=== PATIENT | male | born 1960 | race Caucasian/White ===

== ENCOUNTER → 2019-04-02 15:44 | Outpatient (CLI) | payer OTHER, SELFPAY ==
--- NOTE | 2019-04-02 15:48 | CT_ITS ---
STUDY: CT ABDOMEN AND PELVIS WITH CONTRAST REASON FOR EXAM: Male, 59 years old. Abdominal pain and discomfort. History of Crohn''s disease. RADIATION DOSAGE (If Supplied By Facility): CTDIvol = ( 14.22 ) mGy, DLP = ( 895.82 ) mGycm TECHNIQUE: Transaxial images were obtained from the dome of the diaphragm to the symphysis pubis with oral contrast. Oral and amp; Readi-CAT and amp; IV 100mL Isovue-300 was administered. Sagittal and coronal images were reconstructed. Individualized dose optimization techniques were used for this CT. COMPARISON: None. FINDINGS: The visualized lung bases are unremarkable. The visualized portions of the heart are within normal limits. Normal liver. Normal gallbladder and extrahepatic biliary system. Normal spleen. Normal pancreas. Normal bilateral adrenal glands. Normal right kidney. Normal left kidney. Oral visualized ureters. Normal visualized stomach. Normal small intestine. Increased rectal feces. The colon is otherwise unremarkable. The appendix is visualized and appears normal. Minimal atherosclerotic changes of the distal aorta and iliac arteries without aneurysm or dissection. Normal inferior vena cava. Normal retroperitoneum. Normal urinary bladder. The prostate is mildly enlarged. Normal seminal vesicles. There is no pelvic lymphadenopathy. No free air or free fluid is seen within the peritoneal cavity. There are bilateral inguinal hernias of omental fat and fluid There are diffuse degenerative changes of the visualized lumbar spine. CT/Abdomen/Pelvis WITH Contrast IMPRESSION: 1. No evidence of acute intra-abdominal or pelvic process. 2. Mildly enlarged prostate. 3. Bilateral inguinal hernias. 4. Degenerative changes of the lumbar spine. Electronically Signed: Darrin Mancera DO at 16:36 EST Tel [phone], Service support ,
== END ==
PROVIDERS: Family Provider Family Medicine; PCP Family Medicine; Referring Provider Family Medicine; Visit Provider Family Medicine
DX: K50.018 Crohn's disease of small intestine with other complication (principal); R10.84 Generalized abdominal pain
CPT/HCPCS: 74177; Q9967

== ENCOUNTER 2019-04-16 10:59 | Day surgery (SDC) | payer OTHER, SELFPAY ==
[2019-04-10 15:10] VITALS: BMI 28.1
--- NOTE | 2019-04-12 12:38 | HP_ITS ---
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 Is patient in pain?: Yes Allergies No Known Allergies Allergy (Verified 04/12/19 08:30) [facility] Medical History (Updated 04/10/19 @ 15:08 by Shayla Crum) Bilateral inguinal hernia (Acute) Crohn's disease (Acute) Surgical History (Updated 04/10/19 @ 15:08 by Shayla Crum) History of ankle surgery (Acute) History of colonoscopy (Acute) History of hand surgery (Acute) Family History (Updated 04/10/19 @ 15:09 by Shayla Crum) Mother Colon cancer Breast cancer Cancer BLADDER/LUNG Social History (Updated 04/12/19 @ 12:38 by El Lynch MD) Smoking Status: Never smoker HPI HPI HPI: CHAY DAI, is a 59 M who presents to the office today for HPI HPI Surgical H&P: Yes HPI: CHAY DAI, is a 59 M who presents to the office today for Bilateral groin pain and need for colonoscopy. The patient has been experiencing bilateral groin pain and he had a CT scan which showed bilateral inguinal hernias. He says that the pain has been there steadily. He also requires Surveillance colonoscopy for his Crohn's disease. His last Colonoscopy was over 5 years ago. ROS General General: No weight change, appetite, fatigue, colon cancer, breast cancer or weakness HEENT HEENT: No difficulty swallowing, eye injury, eye surgery, swollen glands or hoarseness Endo Endocrine: No thyroid disease, diabetes mellitus, thyroid cancer, Hair loss, heat intolerance or cold intolerance Cardio Cardiovascular: No murmur, pacemaker, heart disease, atrial fibrillation, high blood pressure, heart attack, heart stent, palpitations, shortness of breat with exertion or chest pain Psych Psychiatric: No depression, anxiety or hearing voices Resp Respiratory: No shortness of breath, No sleep apnea, No cough, No COPD, No asthma, No emphysema, No wheezing Gastro Gastrointestinal: Yes abdominal pain, No nausea or vomiting, Yes diarrhea, No constipation, No blood in stool, No acid reflux, No hemorrhoids, No ulcers, No gallbladder problem, No black,tarry stools Radu Hematologic: No blood thinners, No blood disorders, No bleeding, No anemia, No blood clots Neuro Neurologic: No weakness Exam Const General: cooperative Orientation: alert, oriented x3 HENMT Head: normal to inspection Ears: hearing grossly normal bilaterally Eyes General: appearance normal, both eyes and all related structures Visual Almonte: normal visual almonte by confrontation Neck Neck: normal visual inspection Chest Chest palpation & inspection: normal inspection of the chest Resp Effort & Inspection: normal respiratory effort Auscultation: clear to auscultation bilaterally Cardio Rate: regular rate Rhythm: regular rhythm Heart Sounds: no murmurs GI Inspection: non-distended Palpation: soft, nontender Other: The patient has bilateral groin pain. Musc Cervical Spine: normal cervical lordosis, cervical ROM normal Skin General: no rashes or lesions noted Neuro General: alert, oriented x3 Cranial Nerves: CN's II-XI intact bilaterally Cognition: normal cognition Extrem General: normal to inspection, full ROM Psych Appearance: grossly normal Affect: normal affect Assessment & Plan Problems 1. Non-recurrent bilateral inguinal hernia without obstruction or gangrene K40.20 2. Crohn's disease with complication, unspecified gastrointestinal tract location K50.919 Plan Patient reports he is having bilateral groin pain. I was unable to appreciate a reducible hernia on either side but he was exquisitely tender. CT scan did reveal fat in the bilateral inguinal canals. This may be bilateral inguinal cord lipomas. I explained to him that I did not know if repairing his hernias would fix his pain but I did offer him robotic assisted laparoscopic inguinal hernia repair on both sides. I explained that it may be as simple as removing the cord lipomas or this may not resolve his pain at all. I discussed the risks including but not limited to bleeding, infection, injury to bowel, injury to spermatic cord, chronic groin pain. The patient understands and wants to proceed. I also offered the patient colonoscopy for surveillance for his Crohn's disease. I explained endoscopy in detail to the patient. I explained the risks including but not limited to stroke or heart attack with anesthesia, perforation of the GI tract, bleeding, infection. I explained that any of these could necessitate further emergency surgery. The patient understands and all questions were answered sufficiently. The patient wishes to proceed with procedure. El Lynch MD Pager: [facility] [address] [place] [address], [address] [place] [phone] Office: Orders Orders: Colonoscopy 04/10/19 K50.90 Medications New: hydrocodone-acetaminophen 5-325 mg ([place]) 1 tab PO Q6H PRN 20 tabs 0RF pain K40.20 Coding Level of Care Code Off vis,new,level 4 Diagnoses Non-recurrent bilateral inguinal hernia without obstruction or gangrene K40.20 ??Obstruction and gangrene presence: without obstruction or gangrene ??Recurrence: non-recurrent Crohn's disease with complication, unspecified gastrointestinal tract location K50.919 ??Gastrointestinal tract location: unspecified location ??Digestive disease complication type: unspecified complication Time Spent (min) 45 04/12/19 1238 <Electronically signed by El herrera MD> Date _ El Lynch MD I have re-examined the patient. There are no clinical changes since date of exam.
--- NOTE | 2019-04-12 14:31 | EKG12_ITS ---
Test Reason : PRE-OP Blood Pressure : / mmHG Vent. Rate : 093 BPM Atrial Rate : 093 BPM P-R Int : 184 ms QRS Dur : 094 ms QT Int : 374 ms P-R-T Axes : 066 -62 075 degrees QTc Int : 465 ms Normal sinus rhythm Possible Left atrial enlargement Left anterior fascicular block Cannot rule out Inferior infarct , age undetermined Abnormal ECG Confirmed by FAM AN, SYDNIE ([id number]), news videotape editor ISABEL DEWEY ([id number]) on 04/13/2019 10:06:22 AM Referred By: El Lynch Confirmed By:AMARIS OTTO MD
[2019-04-16] VITALS (7 sets, daily range): BP systolic 102–122; BP diastolic 72–87; PULSE 89–94; RESP 16–18; TEMP 36.1–37.1; O2SAT 96–100; BMI 28.3
--- NOTE | 2019-04-16 | LIP_PTH ---
PATIENT: CHAY DAI LOC: [facility] [place] U#:[id number] AGE/SX: 59/M ROOM: RE04/16/[address]: Dr. El Lynch MD : 1960 BED: DIS: 04/16/2019 SPEC #: [id number] RECD: 04/16/19 16:07 STATUS: MORALES RANDAL #: [id number] PARISH: 04/16/19 00:[address]: El Lynch DEPT: SURGICAL PATHOLOGY RECD BY: Reno Delgado ENTERED: 04/17/19 08:52 SP TYPE: LIPOMA OTHR DR: MD Dr. Jonnie Mondragon MD Tissues: A - Soft tissues, NOS B - Soft tissues, NOS Procedures: Surgery Specimen Level III HEADER OPERATION: Lap robotic inguinal hernia PRE-OP DIAGNOSIS: Nonrecurrent bilateral inguinal hernia TISSUE SUBMITTED: A - Right cord lipoma, B - Left inguinal lipoma MICROSCOPIC DIAGNOSIS A. Right cord lipoma: Mature adipose tissue, consistent with lipoma. B. Left inguinal lipoma: Mature adipose tissue, consistent with lipoma. PAUL:kalin 04/18/19 MICROSCOPIC DESCRIPTION Slides are reviewed. GROSS DESCRIPTION A - Received in fixative is one container labeled with the patient's name and designated cord lipoma. The specimen consists of five variable sized pieces of yellow adipose tissue measuring in aggregate 3 x 2.5 x 0.3 cm. The entire specimen is submitted in one cassette. B - Received in fixative is one container labeled with the patient's name and designated left inguinal lipoma. The specimen consists of an irregular piece of yellow adipose tissue measuring 3 x 2.5 x 0.3 cm. Also present in the container are two smaller pieces of yellow adipose tissue measuring 1 x 0.2 x 0.2 cm. The entire specimen is submitted in one cassette. / PAUL:kalin 04/17/19 TC:1 CPT: 21137 x2
[2019-04-16] MEDS: Lactated Ringers 1,000 ML 100 ML IV ×2 (11:30)
[2019-04-16] MEDS: Cefazolin 2 GM in 0.9% Normal Saline 100 ML IV (12:06)
[2019-04-16] MEDS: Bupivacaine Mpf 0.5% 30 ML VIAL (14:08)
--- NOTE | 2019-04-16 14:52 | DCINST_ITS ---
Discharge Diet: Light diet - advance as tolerated Discharge Activity: Return to Normal Activity, May Not Drive - for 2-3 days or while taking narcotic pain meds., May Shower - with the bandage in place 1-2 days after surgery. Lifting Restrictions: 20 pounds for 4 weeks. Additional Activity Instructions:: Climbing stairs is fine, walking is encouraged. Sitting in bed may be uncomfortable. Sitting up using your lateral muscles (sitting up sideways) is usually more comfortable. Do not drive, work heavy equipment of sign legal documents for 24 hours. If your hernia repair was an ingunial repair, you may have scrotal swelling, an ice pack and/or athletic support can provide more comfort. Pain medications may cause nausea, you should typically eat light foods as you take your pain medications. Pain medications may also cause constipation. If you have difficulty with this, discuss with your doctor. Call your doctor if your incision/area has: Continuous Slow Oozing, Sudden Increased Bleeding, Increased Pain/ Swelling, Increased Redness, Foul Smelling Discharge Call your doctor if you observe: Fever of 101 or Higher Suture Line Care: Avoid Pulling/Pushing, Avoid Pinching/Bending Change Dressing in (Days):: 3 - Leave steri-strips for 1 week. May protect with a guaze bandaid. Cleanse incision/area with: Keep Dressing Clean & Dry Allergies/Adverse Reactions: Allergies No Known Allergies Allergy (Verified 04/12/19 08:30) Medications to take at Discharge hydrocodone 5 mg-acetaminophen 325 mg tablet 1 tab PO Q6H PRN #20 tab 04/10/19 RX: traMADol [Ultram] 50 mg PO Q4H PRN PRN 5 Days #20 tablet 04/16/19 The following prescriptions were given: RX: traMADol [Ultram] 50 mg PO Q4H PRN PRN 5 Days #20 tablet PRN Reason: Pain Score 1-10/10 Transmission Status: Sent to [facility] Orders to be completed after discharge: 12 Lead EKG [CVS] Time Frame: 04/12/19, Facility: [facility], Location: Cardiovascular Services Primary Care Physician: Jonnie Machado MD [Primary Care Provider] - Test Results: Test results from this visit will be discussed in further detail at your follow- up appointment, if applicable. Please Follow Up With: El Lynch MD When: Please call to schedule 2 week follow up appointment. [phone]
--- NOTE | 2019-04-16 15:09 | PCM.OPRPT ---
Problem List (1) Bilateral inguinal hernia Status: Acute Qualifiers: Obstruction and gangrene presence: without obstruction or gangrene Recurrence: non-recurrent Qualified Code(s): K40.20 - Bilateral inguinal hernia, without obstruction or gangrene, not specified as recurrent Report of Operation Date of Procedure: 04/16/19 Pre-Operative Diagnosis: Bilateral inguinal hernias Post-Operative Diagnosis: Same Surgery/Procedure Performed:: Robotic assisted laparoscopic bilateral inguinal hernia repair with mesh Specimen's removed: Right and left cord lipoma Description of Procedure: Patient was brought back to the operating room and general anesthesia was induced. The abdomen was prepped and draped in the usual sterile fashion. An incision was made superior to the umbilicus and a Veress needle was placed into the abdomen and a drop test was performed. The abdomen was then insufflated to 15 mmHg. The Veress needle was removed and the camera port was placed into the abdomen. The abdomen was inspected. The patient appeared to have bilateral very small inguinal hernias. He also had abnormal anatomy. He only possesses a right medial umbilical ligament. There is no fold on the left. Next, right and left lower quadrant 8 mm ports were placed under direct visualization. The robot was then docked after the patient was placed into steep Trendelenburg position. The right peritoneum was incised with cautery scissors and dissection of the peritoneum was taken inferiorly until the hernia was identified. The hernia sac would not reduced easily. It appeared to be stuck to something firm on the patient spermatic cord. I was forced to leave the peritoneum on the spermatic cord and incised the peritoneum accordingly. The dissection was carried more posterior until there was a good window for the mesh. The inguinal canal was inspected and there was a lipoma which was reduced and removed. Next a piece of pro-watermelon harvesting supervisor mesh was unfolded and placed over the right groin and the peritoneum was reapproximated using a running 3-0V lock suture. The defect in the peritoneum was then closed using another running 3-0V lock suture. Next the peritoneum on the left side was incised and dissected inferiorly until the spermatic cord was reached. Once again the peritoneum was densely adherent to the spermatic cord and was unable to be fully dissected free. It came free a lot easier than the other side and I was able to keep to a very small defect in the peritoneum after the dissection was complete. The inguinal canal was inspected and there was a large lipoma on the side as well which was reduced and removed. Next a piece of pro-watermelon harvesting supervisor mesh was placed in the left inguinal region and unfolded. The peritoneum was reapproximated with a running 30V lock suture. There was only a small defect in the peritoneum closed with a 3-0 Vicryl suture. At the end of the case both inguinal regions were completely covered with peritoneum. The ports were then removed and the robot was undocked. The incisions were anesthetized with local anesthetic and closed with interrupted 4-0 Monocryl sutures and Steri-Strips and bandages. Patient tolerated the procedure well. At the end of the case the scrotum was inspected. The testicles were high riding but they were present in the scrotum. Grafts/Implants Used: Pro-watermelon harvesting supervisor mesh bilaterally - Admit VTE Documentation VTE Mechan Device Prophylaxis: SCD's
[2019-04-16] MEDS: traMADol 50 MG Tablet PO (15:36)
== END 2019-04-16 16:13 | disposition home or self-care (01) ==
LOC: SDC 10:59 → AC 11:04
PROVIDERS: Family Provider Family Medicine; PCP Family Medicine; Referring Provider Surgery; Visit Provider Surgery
PROC: (CPT 49650; principal; 2019-04-16 12:40)
DX: K40.20 Bilateral inguinal hernia, without obstruction or gangrene, not specified as recurrent (principal); D17.6 Benign lipomatous neoplasm of spermatic cord; K50.919 Crohn's disease, unspecified, with unspecified complications
CPT/HCPCS: 49650; 55559; 88304; 93005; J7120; J2405

== ENCOUNTER 2019-06-05 07:09 | Day surgery (SDC) | payer OTHER, SELFPAY ==
[2019-04-10 15:10] VITALS: BMI 28.1
--- NOTE | 2019-04-12 12:38 | HP_ITS ---
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 Is patient in pain?: Yes Allergies No Known Allergies Allergy (Verified 04/12/19 08:30) [facility] Medical History (Updated 04/10/19 @ 15:08 by Shayla Crum) Bilateral inguinal hernia (Acute) Crohn's disease (Acute) Surgical History (Updated 04/10/19 @ 15:08 by Shayla Crum) History of ankle surgery (Acute) History of colonoscopy (Acute) History of hand surgery (Acute) Family History (Updated 04/10/19 @ 15:09 by Shayla Crum) Mother Colon cancer Breast cancer Cancer BLADDER/LUNG Social History (Updated 04/12/19 @ 12:38 by El Lynch MD) Smoking Status: Never smoker HPI HPI HPI: CHAY DAI, is a 59 M who presents to the office today for HPI HPI Surgical H&P: Yes HPI: CHAY DAI, is a 59 M who presents to the office today for Bilateral groin pain and need for colonoscopy. The patient has been experiencing bilateral groin pain and he had a CT scan which showed bilateral inguinal hernias. He says that the pain has been there steadily. He also requires Surveillance colonoscopy for his Crohn's disease. His last Colonoscopy was over 5 years ago. ROS General General: No weight change, appetite, fatigue, colon cancer, breast cancer or weakness HEENT HEENT: No difficulty swallowing, eye injury, eye surgery, swollen glands or hoarseness Endo Endocrine: No thyroid disease, diabetes mellitus, thyroid cancer, Hair loss, heat intolerance or cold intolerance Cardio Cardiovascular: No murmur, pacemaker, heart disease, atrial fibrillation, high blood pressure, heart attack, heart stent, palpitations, shortness of breat with exertion or chest pain Psych Psychiatric: No depression, anxiety or hearing voices Resp Respiratory: No shortness of breath, No sleep apnea, No cough, No COPD, No asthma, No emphysema, No wheezing Gastro Gastrointestinal: Yes abdominal pain, No nausea or vomiting, Yes diarrhea, No constipation, No blood in stool, No acid reflux, No hemorrhoids, No ulcers, No gallbladder problem, No black,tarry stools Radu Hematologic: No blood thinners, No blood disorders, No bleeding, No anemia, No blood clots Neuro Neurologic: No weakness Exam Const General: cooperative Orientation: alert, oriented x3 HENMT Head: normal to inspection Ears: hearing grossly normal bilaterally Eyes General: appearance normal, both eyes and all related structures Visual Almonte: normal visual almonte by confrontation Neck Neck: normal visual inspection Chest Chest palpation & inspection: normal inspection of the chest Resp Effort & Inspection: normal respiratory effort Auscultation: clear to auscultation bilaterally Cardio Rate: regular rate Rhythm: regular rhythm Heart Sounds: no murmurs GI Inspection: non-distended Palpation: soft, nontender Other: The patient has bilateral groin pain. Musc Cervical Spine: normal cervical lordosis, cervical ROM normal Skin General: no rashes or lesions noted Neuro General: alert, oriented x3 Cranial Nerves: CN's II-XI intact bilaterally Cognition: normal cognition Extrem General: normal to inspection, full ROM Psych Appearance: grossly normal Affect: normal affect Assessment & Plan Problems 1. Non-recurrent bilateral inguinal hernia without obstruction or gangrene K40.20 2. Crohn's disease with complication, unspecified gastrointestinal tract location K50.919 Plan Patient reports he is having bilateral groin pain. I was unable to appreciate a reducible hernia on either side but he was exquisitely tender. CT scan did reveal fat in the bilateral inguinal canals. This may be bilateral inguinal cord lipomas. I explained to him that I did not know if repairing his hernias would fix his pain but I did offer him robotic assisted laparoscopic inguinal hernia repair on both sides. I explained that it may be as simple as removing the cord lipomas or this may not resolve his pain at all. I discussed the risks including but not limited to bleeding, infection, injury to bowel, injury to spermatic cord, chronic groin pain. The patient understands and wants to proceed. I also offered the patient colonoscopy for surveillance for his Crohn's disease. I explained endoscopy in detail to the patient. I explained the risks including but not limited to stroke or heart attack with anesthesia, perforation of the GI tract, bleeding, infection. I explained that any of these could necessitate further emergency surgery. The patient understands and all questions were answered sufficiently. The patient wishes to proceed with procedure. El Lynch MD Pager: [facility] [address] [place] [address], [address] [place] [phone] Office: Orders Orders: Colonoscopy 04/10/19 K50.90 Medications New: hydrocodone-acetaminophen 5-325 mg ([place]) 1 tab PO Q6H PRN 20 tabs 0RF pain K40.20 Coding Level of Care Code Off vis,new,level 4 Diagnoses Non-recurrent bilateral inguinal hernia without obstruction or gangrene K40.20 ??Obstruction and gangrene presence: without obstruction or gangrene ??Recurrence: non-recurrent Crohn's disease with complication, unspecified gastrointestinal tract location K50.919 ??Gastrointestinal tract location: unspecified location ??Digestive disease complication type: unspecified complication Time Spent (min) 45 04/12/19 1238 <Electronically signed by El herrera MD> Date _ El Lynch MD I have re-examined the patient. There are no clinical changes since date of exam.
[2019-04-16 11:13] VITALS: BMI 28.3
--- NOTE | 2019-06-05 | COLBX_PTH ---
PATIENT: CHAY DAI LOC: [facility] U#:[id number] AGE/SX: 59/M ROOM: RE06/05/[address]: Dr. El Lynch MD : 1960 BED: DIS: 06/05/2019 SPEC #: [id number] RECD: 06/05/19 10:31 STATUS: MORALES RANDAL #: [id number] PARISH: 06/05/19 00:[address]: El Lynch DEPT: SURGICAL PATHOLOGY RECD BY: Reno Delgado ENTERED: 06/05/19 10:31 SP TYPE: COLON BX OTHR DR: Dr. Jonnie Machado MD Tissues: A - Transverse colon B - Descending colon C - Sigmoid colon biopsy Procedures: Surgery Specimen Level IV HEADER OPERATION: Colonoscopy (MAC) PRE-OP DIAGNOSIS: Crohn's TISSUE SUBMITTED: A - Transverse colon polyp, B - Descending colon polyp, C - Sigmoid colon polyp MICROSCOPIC DIAGNOSIS A. Transverse colon polyp, biopsy: Fragments of tubular adenoma. B. Descending colon polyp, biopsy: Fragments of tubular adenoma. C. Sigmoid colon polyp, biopsy: Tubular adenoma. PAUL:kalin 06/06/19 MICROSCOPIC DESCRIPTION Slides are reviewed. GROSS DESCRIPTION A - Received in fixative is one container labeled with the patient's name and designated transverse colon. The specimen consists of two irregular fragments of light campbell soft tissue that in aggregate measure 0.6 x 0.5 x 0.1 cm. The specimen is totally submitted in one cassette. B - Received in fixative is one container labeled with the patient's name and designated descending polyp. The specimen consists of two irregular fragments of light campbell soft tissue that in aggregate measure 0.7 x 0.7 x 0.2 cm. The specimen is totally submitted in one cassette. C - Received in fixative is one container labeled with the patient's name and designated sigmoid polyp. The specimen consists of one irregular fragment of light campbell soft tissue that measures 0.6 x 0.3 x 0.2 cm. The specimen is totally submitted in one cassette. / AM:kalin 06/05/19 TC:1 CPT: 77762 x3
[2019-06-05 07:23] VITALS: BP 126/86; PULSE 103; RESP 16; TEMP 36.4; O2SAT 98; BMI 27.6
[2019-06-05] MEDS: Lactated Ringers 1,000 ML 100 ML IV (07:28)
--- NOTE | 2019-06-05 07:28 | HP.PCM_ITS ---
Problem List (1) Crohn's disease Status: Acute History of Present Illness Date of Admission: 06/05/19 The patient is a 59 year old M presents for colonoscopy. He is here for surveillance for his Crohn's disease. Last colonoscopy was over 5 years ago. Past Medical History Medical History: Medical History (Last Updated 04/10/19 @ 15:08 by Shayla Crum) Bilateral inguinal hernia K40.20 Crohn's disease K50.90 Allergies No Known Allergies Allergy (Verified 06/05/19 07:23) Home Medications: Ambulatory Orders Medication Instructions Recorded NK 06/01/19 Surgical History: Surgical History (Last Updated 04/24/19 @ 15:05 by Shayla Crum) History of ankle surgery Z98.890 History of bilateral inguinal hernia repair Onset Date: ~03/2019 Z98.890, Z87.19 History of colonoscopy Z98.890 History of hand surgery Z98.890 Smoking Status: Never smoker Tobacco Use: Non-smoker Review of Systems Constitutional: Denies: Anorexia, Fever Cardiovascular: Denies: Chest Pain Respiratory: Denies: Cough, Shortness of Breath Gastrointestinal: Denies: Abdominal Pain, Nausea, Vomiting VTE Information - Inpt Only VTE Present on Admission: No Patient Problems: Active and Suspected Problems (Last Updated 04/10/19 @ 15:08 by Shayla Crum) Crohn's disease (Acute) - Physical Exam Vitals/I&O's: Vital Signs Temp Pulse Resp BP Pulse Ox 97.5 F L 103 H 16 126/86 H 98 06/05/19 07:23 06/05/19 07:23 06/05/19 07:23 06/05/19 07:23 06/05/19 07:23 Oxygen Delivery Method Room Air Weight: 181 lb 14.102 oz Body Mass Index (BMI) 27.6 General: Alert, Oriented x3 Neck: No JVD Lungs: Normal air movement Cardiovascular: Regular rate, Regular Rhythm Abdomen: Soft, Non Tender, Non-Distended Current Medications Lactated Ringer's () 1,000 mls @ 100 mls/hr IV .Q10H DEVIN Last Admin: 06/05/19 07:28 Dose: 100 mls/hr Documented by: Assessment/Plan All Active Problems (Last Updated 04/10/19 @ 15:08 by Shayla Crum) Crohn's disease (Acute) Bilateral inguinal hernia (Acute) 59-year-old male Crohn's disease Plan for surveillance colonoscopy. Patient's last colonoscopy was over 5 years ago. I explained endoscopy in detail to the patient. I explained the risks including but not limited to stroke or heart attack with anesthesia, perforation of the GI tract, bleeding, infection. I explained that any of these could necessitate further emergency surgery. The patient understands and all questions were answered sufficiently. The patient wishes to proceed with procedure. El Lynch MD Pager: [facility] [address] [place] [address] [address] [place] [address] Office:
[2019-06-05 08:16] VITALS: BP 111/83; BP 126/86; PULSE 93; RESP 16; TEMP 36.1; O2SAT 96
[2019-06-05 08:20] VITALS: BP 113/78; BP 126/86; PULSE 93; RESP 16; O2SAT 95
[2019-06-05 08:25] VITALS: BP 102/77; BP 126/86; PULSE 93; RESP 16; O2SAT 94
--- NOTE | 2019-06-05 08:29 | OP.COLON_ITS ---
Patient Name: Norberto Ho Procedure Date: 06/05/2019 7:32 AM Date of : 1960 Age: 59 Procedure: Colonoscopy Indications: High risk colon cancer surveillance: Crohn's disease Providers: El Lynch MD Referring MD: Jonnie Machado Md Medicines: Monitored Anesthesia Care Patient Profile: This is a 59 year old male. Refer to note in patient chart for documentation of history and physical. Last Colonoscopy: several years ago. Complications: No immediate complications. Estimated blood loss: Minimal. Procedure: Pre-Anesthesia Assessment: - Prior to the procedure, a History and Physical was performed, and patient medications and allergies were reviewed. The patient's tolerance of previous anesthesia was also reviewed. The risks and benefits of the procedure and the sedation options and risks were discussed with the patient. All questions were answered, and informed consent was obtained. Prior Anticoagulants: The patient has taken no previous anticoagulant or antiplatelet agents. After reviewing the risks and benefits, the patient was deemed in satisfactory condition to undergo the procedure. After I obtained informed consent, the scope was passed under direct vision. Throughout the procedure, the patient's blood pressure, pulse, and oxygen saturations were monitored continuously. The colonoscope was introduced through the anus and advanced to the cecum, identified by appendiceal orifice and ileocecal valve. The colonoscopy was performed without difficulty. The patient tolerated the procedure well. The quality of the bowel preparation was good. Scope In: 7:55:42 AM Scope Withdrawal Time 0 hours 13 minutes 13 seconds Scope Out: 8:12:47 AM Total Procedure Duration Time 0 hours 17 minutes 5 seconds Findings: Three polyps were found in the sigmoid colon, descending colon and transverse colon. These polyps were removed with a hot snare. Resection and retrieval were complete. Impression: - Three polyps in the sigmoid colon, in the descending colon and in the transverse colon, removed with a hot snare. Resected and retrieved. Recommendation: - Await pathology results. - Repeat colonoscopy in 5 years for surveillance. - Discharge patient to home. - Resume previous diet. - Continue present medications. Procedure Code(s): --- Professional --- 70518, Colonoscopy, flexible; with removal of tumor(s), polyp(s), or other lesion(s) by snare technique Diagnosis Code(s): --- Professional --- K50.90, Crohn's disease, unspecified, without complications D12.5, Benign neoplasm of sigmoid colon D12.4, Benign neoplasm of descending colon D12.3, Benign neoplasm of transverse colon (hepatic flexure or splenic flexure) CPT copyright 2017 [employer]. All rights reserved. The codes documented in this report are preliminary and upon information coder review may be revised to meet current compliance requirements. El Lynch MD 06/05/2019 8:29:02 AM This report has been signed electronically. Number of Addenda: 0 Note Initiated On: 06/05/2019 7:32 AM
--- NOTE | 2019-06-05 08:29 | OP.CCLET_ITS ---
06/05/2019 Jonnie Machado Md Re : Colonoscopy procedure for Norberto Ho Dear Carter This procedure was performed on Wednesday, June 05, 2019. My impressions and recommendations are as follows: Impressions : - Three polyps in the sigmoid colon, in the descending colon and in the transverse colon, removed with a hot snare. Resected and retrieved. Recommendations : - Await pathology results. - Repeat colonoscopy in 5 years for surveillance. - Discharge patient to home. - Resume previous diet. - Continue present medications. My findings are described in the full procedure note, which is enclosed. If I can be of further assistance, please feel free to contact me at Doctor phone number(s): , Work: . Sincerely, El Lynch MD 06/05/2019 8:29:02 AM This report has been signed electronically.
[2019-06-05 08:30] VITALS: BP 105/84; BP 126/86; PULSE 89; RESP 16; TEMP 37.1; O2SAT 98
[2019-06-05 08:41] VITALS: BP 126/86
== END 2019-06-05 09:00 | disposition home or self-care (01) ==
LOC: EN 07:09 → AC 07:11
PROVIDERS: Family Provider Family Medicine; PCP Family Medicine; Referring Provider Family Medicine; Visit Provider Surgery
PROC: 0DJD8ZZ Inspection of Lower Intestinal Tract, Via Natural or Artificial Opening Endoscopic (ICD-10-PCS; CPT 45378; principal; 2019-06-05 07:55)
DX: Z12.11 Encounter for screening for malignant neoplasm of colon (principal); K50.90 Crohn's disease, unspecified, without complications; D12.5 Benign neoplasm of sigmoid colon; D12.4 Benign neoplasm of descending colon; D12.3 Benign neoplasm of transverse colon
CPT/HCPCS: 45385; 88305; J7120; J2405

== ENCOUNTER 2019-07-30 11:47 | Inpatient (IN) | payer OTHER, SELFPAY ==
[2019-07-30] VITALS (9 sets, daily range): BP systolic 105–155; BP diastolic 71–108; PULSE 99–146; RESP 16–20; TEMP 36.6–37.1; O2SAT 97–100; BMI 31.0; BMI 30.3
--- NOTE | 2019-07-30 11:56 | RAD_ITS ---
STUDY: X-RAY CHEST REASON FOR EXAM: Male, 59 years old. Bilateral leg edema, SOB when walking -- x 4 months TECHNIQUE: PA and lateral views of the chest. COMPARISON: None. FINDINGS: Vascular congestion and mild CHF. There is no demonstrated pleural abnormality. There is moderate cardiac enlargement. Normal mediastinum and loreto. Normal visualized pulmonary arteries. There is atherosclerotic tortuosity of the aortic arch and descending thoracic aorta. There are degenerative changes of the visualized thoracic spine. Normal visualized ribs, clavicles, and shoulders. There is no demonstrated abnormality of the visualized soft tissue structures of the upper abdomen. RAD/Chest PA and Lateral IMPRESSION: Moderate cardiomegaly. Mild degree of pulmonary vascular congestion. Electronically Signed: Champ Sagastume, at 12:58 EDT , Service support ,
--- NOTE | 2019-07-30 11:56 | EKG12_ITS ---
Test Reason : Blood Pressure : / mmHG Vent. Rate : 109 BPM Atrial Rate : 109 BPM P-R Int : 180 ms QRS Dur : 094 ms QT Int : 344 ms P-R-T Axes : 071 -71 090 degrees QTc Int : 463 ms Sinus tachycardia with Premature atrial complexes Left anterior fascicular block Cannot rule out Inferior infarct (cited on or before 12-APR-2019) Possible Anterior infarct , age undetermined Abnormal ECG Confirmed by LIZA MICHAELS ([id number]), supervising editor trailer ISABEL DEWEY ([id number]) on 08/02/2019 3:09:58 PM Referred By: TATIANNA Confirmed By:LIZA MICHAELS
--- NOTE | 2019-07-30 11:59 | ED.VIS.GEN ---
History of Present Illness Chief Complaint: Edema Informant: Patient Onset: Weeks Context: Gradual Onset Timing: Continuous Current Severity: Moderate Maximum Severity: Severe Narrative: The patient is a 59-year-old male with no significant medical history that presents to the emergency department with a few months of worsening exertional dyspnea, chest tightness, orthopnea, and weight gain. Patient states that over the past 2 months, he is noticed some shortness of breath when he exerts himself. He states over the past 2 weeks, he has had a lot more orthopnea and feels like he cannot lay flat at night. He states that if he tries to climb the stairs, he stops custodial through to catch his breath. He will get some tightness across his chest, but he denies any pain. He denies any fevers or chills. He denies any cough. Patient has no cardiac history. Prior similar symptoms: No Recent Illness/Hospitalization: No Past Medical History - Allergies and Home Meds Allergies/Adverse Reactions: Allergies No Known Allergies Allergy (Verified 07/30/19 11:48) Primary Care Physician: Jonnie Machado MD [Primary Care Provider] - Prior records reviewed: Yes Past Medical History: None Surgical History: herniorrhaphy Smoking Status: Never smoker Review of Systems General: Denies: Chills, Fever, Sweats Eyes: Denies: Visual changes - bilaterally, Diplopia ENT: Denies: Rhinorrhea, Sore throat Cardiovascular: Reports: Chest pain. Denies: Palpitations Respiratory: Reports: Dyspnea, Dyspnea on exertion, Orthopnea. Denies: Cough Gastrointestinal: Denies: Abdominal pain, Nausea, Vomiting, Diarrhea, Melena, Hematochezia Genitourinary: Denies: Dysuria, Hematuria, Frequency Musculoskeletal: Denies: Back pain, Extremity Pain Skin: Denies: Rash, Wounds Neurological: Denies: Headache, Weakness, Numbness Physical Exam Vital Signs/Narrative: Vital Signs Temp Pulse Resp BP Pulse Ox 07/30/19 11:48 98 F 107 H 20 H 155/89 H 100 Inital Vital Signs reviewed: Yes General: Well nourished, Well developed, No Acute Distress Head: Normocephalic, Atraumatic Eyes: Perrl, EOMI ENT: Moist mucous membranes, No rhinorrhea Neck: Supple, Nontender Cardiovascular: Regular rate, Regular rhythm, No murmurs Respiratory: No distress, Chest nontender, Rales Abdomen: Soft, Nontender, Nondistended, Normal bowel sounds Back: Nontender, Normal Inspection Extremities: Nontender, No edema Skin: Normal color, No rash Neurological: Alert, Oriented x3, Cranial nerves II-XII grossly intact, Normal Strength, Normal Sensation Psychological: Normal affect, Normal Mood Diagnostic/Tx/Re-eval Chest X-Ray - ED: 2 View, Normal, Mediastinum, Cardiomegaly, CHF, Right Effusion, Left Effusion Clinical Impression(s) from Imaging Studies Chest X-Ray 07/30/19 11:56 IMPRESSION: Moderate cardiomegaly. Mild degree of pulmonary vascular congestion. Electronically Signed: Champ Hollowaybrandie, at 12:58 EDT , Service support , Abnormal Lab Results 07/30/19 07/30/19 07/30/19 12:10 12:10 12:10 WBC 6.9 RBC 4.51 L Hgb 13.5 Hct 43.3 MCV 96.0 H MCH 29.9 MCHC 31.2 L RDW Std Deviation 53.2 H RDW Coeff of Kelsi 14.9 H Plt Count 232 MPV 9.3 Immature Gran % (Auto) 0.300 Neut % (Auto) 76.9 H Lymph % (Auto) 13.3 L Saunders % (Auto) 6.1 Eos % (Auto) 2.8 Baso % (Auto) 0.6 Absolute Neuts (auto) 5.3 Absolute Lymphs (auto) 0.91 Nucleated RBC % 0 Sodium 141 Potassium 4.5 Chloride 111 H Carbon Dioxide 26.0 Anion Gap 4 L BUN 25 H Creatinine 1.23 Estim Creat Clear Calc 64.66 Est GFR (MDRD) Af Amer 77 Est GFR (MDRD) Non-Af 64 BUN/Creatinine Ratio 20.3 H Glucose 101 Calcium 8.6 Total Bilirubin 1.30 H AST 42 H ALT 62 H Alkaline Phosphatase 107 Troponin I 0.054 H B-Natriuretic Peptide 2623.8 H Total Protein 6.5 Albumin 3.3 Globulin 3.2 Albumin/Globulin Ratio 1.0 - Rhythm Strip Rhythm Strip: Sinus Rhythm Rate: 90 Ectopy: None - EKG Initial EKG Interpretation: Sinus Rhythm, No Acute Injury Pattern, Non-Specific ST Changes - Medical Decision Making The patient presents with exertional dyspnea, orthopnea, and 15 pound weight gain. He will have intermittent exertional chest tightness without pain. It is nonradiating. He does appear to be volume overload with decompensated CHF. EKG shows sinus tachycardia rate of 109. There is some nonspecific T wave flattening in the lateral leads. There is a leftward axis. Chest x-ray shows cardiomegaly with increased vascularization and effusion. Cardiac enzymes are mildly indeterminate. BNP was markedly elevated. Patient has no history of CHF. I do feel that he is going to require admission for cardiac work-up and diuresis. The patient was discussed with the hospitalist. Impression 1. New onset decompensated congestive heart failure ED Disposition - Plan for ED Patient: Referrals: Jonnie Machado MD [Primary Care Provider] -
[2019-07-30 12:20] LABS: Absolute Lymphocyte Count 0.91 X10^3/uL (0.83-4.51); Absolute Neutrophil Count 5.3 X10^3/uL (2.0-7.7); Basophil# 0.04 X10^3/uL; Basophil% 0.6 % (0-1); Eosinophil# 0.19 X10^3/uL; Eosinophils% 2.8 % (0-5); Hematocrit 43.3 % (40-54); Hemoglobin 13.5 g/dL (13.0-16.5); Lymphocyte # 0.91 X10^3/ul (4.0); Lymphocyte % 13.3 % (19-41); Mean Corp Hgb Conc 31.2 g/dL (32-36); Mean Corpuscular Hgb 29.9 pg (27.0-32.0); Mean Platelet Vol. 9.3 fl (6.2-12.0); Monocyte# 0.42 X10^3/uL; Monocyte% 6.1 % (0-10); NRBC Flagged by Analyzer 0 % (0-5); Neutrophil # 5.28 X10^3/uL (2.7-7.7); Neutrophil % 76.9 % (47-70); Platelet Count 232 K/mm3 (150-450); RBC Distribution Width CV 14.9 % (11.6-14.6); RBC Distribution Width SD 53.2 fl (35.1-43.9); Red Blood Count 4.51 M/mm3 (4.6-6.2); White Blood Count 6.9 K/mm3 (4.4-11.0)
[2019-07-30 12:38] LABS: AST(SGOT) 42 U/L (15-37); Alanine Aminotransfer ALT/SGPT 62 U/L (16-61); Albumin, Serum 3.3 g/dL (3.2-5.0); Alkaline Phosphatase 107 U/L (45-117); Anion Gap 4 (5-15); BUN 25 mg/dL (7-18); BUN/Creat Ratio 20.3 RATIO (10-20); Calcium,Total 8.6 mg/dL (8.5-10.1); Chloride 111 mmol/L (98-107); Creatinine, Serum 1.23 mg/dL (0.70-1.30); EST Glomerular Filtration Rate 64 mL/min (>60); Est Glom Filt Rate - Afr Amer 77 mL/min (>60); Estimated Creatinine Clearance 64.66 ml/min; Globulin 3.2 g/dL (2.2-4.2); Glucose 101 mg/dL (74-106); Potassium 4.5 mmol/L (3.5-5.1); Protein, Total 6.5 g/dL (6.4-8.2); Sodium Level 141 mmol/L (136-145)
--- NOTE | 2019-07-30 13:37 | HP.PCM_ITS ---
Problem List (1) Elevated LFTs Status: Acute (2) Abnormal cardiac enzyme level Status: Acute (3) Acute congestive heart failure Status: Acute (4) Crohn's disease Status: Chronic (5) Bilateral inguinal hernia Status: Chronic Qualifiers: Obstruction and gangrene presence: without obstruction or gangrene Recurrence: non-recurrent Qualified Code(s): K40.20 - Bilateral inguinal hernia, without obstruction or gangrene, not specified as recurrent History of Present Illness Date of Admission: 07/30/19 Chief Complaint: Shortness of breath, leg edema. The patient is a 59 year old M with past medical history as mentioned above presented to the emergency room because of leg edema and shortness of breath. His symptoms has been going on for almost 2 months, mainly with shortness of breath, exertion, with even minimal activity and in the last several days, it has been with rest as well, aggravated by any type of activity, associated with increasing bilateral lymphedema more on the left leg as well as orthopnea and PND. He mentioned that normally, he can walk for several miles without any symptoms. He denied chest pain, palpitation, dizziness or lightheadedness. He denied any cardiac history. He denied cough or sputum production. Denied fever or chills. On March,, he had bilateral inguinal hernia repair with mesh. On May,, he had colonoscopy, found to have benign tubular adenoma and Crohn's disease. Today in the emergency department, he was afebrile, heart rate has been around 100, blood pressure slightly elevated, pulse ox was 100% on room air. Routine blood work was unremarkable. EKG revealed sinus tachycardia with PACs, no acute acute changes. Troponin was 0.054. BNP was 2623. LFT revealed slight elevated bilirubin and liver transaminases. Chest x-ray revealed cardiomegaly and mild bilateral basilar pulmonary vascular congestion. He is being admitted for acute new onset congestive heart failure for evaluation and treatment. Past Medical History Past Medical History (Chronic Problems): Chronic Problems (Last Updated 04/10/19 @ 15:08 by Shayla Crum) Crohn's disease (Chronic) Bilateral inguinal hernia (Chronic) Medical History: Medical History (Last Updated 04/10/19 @ 15:08 by Shayla Crum) Bilateral inguinal hernia K40.20 Crohn's disease K50.90 Allergies No Known Allergies Allergy (Verified 07/30/19 11:48) Home Medications: Ambulatory Orders Medication Instructions Recorded NK 06/01/19 Surgical History: Surgical History (Last Updated 04/24/19 @ 15:05 by Shayla Crum) History of ankle surgery Z98.890 History of bilateral inguinal hernia repair Onset Date: ~03/2019 Z98.890, Z87.19 History of colonoscopy Z98.890 History of hand surgery Z98.890 Surgical History: herniorrhaphy Psychiatric History: No pertinent psych hx Lives: Spouse/ Significant Other Smoking Status: Never smoker Alcohol: None Drugs: None - *Family History Maternal Family History: Family History (Last Updated 04/10/19 @ 15:09 by Shayla Crum) Mother Colon cancer Breast cancer Cancer History Items: No pertinent history Paternal Family History: Family History (Last Updated 04/10/19 @ 15:09 by Shayla Crum) Mother Colon cancer Breast cancer Cancer History Items: No pertinent history Review of Systems Constitutional: Denies: Anorexia, Chills, Fever, Weakness Eyes: Denies: Blurred vision, Double vision, Drainage, Redness HEENT: Denies: Difficulty Hearing, Dysphasia, Ear Pain, Eye Pain, Nasal Congestion, Sore Throat Cardiovascular: Reports: Edema. Denies: Chest Pain, Chest Pressure, Chest Tightness, Heaviness, Light Headedness, Palpitations, Paroxysmal Noc. Dyspnea, Syncope Respiratory: Reports: Shortness of Breath, Shortness of breath at rest, Shortness of breath upon exertion. Denies: Cough, Hemoptysis, Sputum production, Wheezing Gastrointestinal: Reports: - - Abdominal fullness.. Denies: Abdominal Pain, Constipation, Diarrhea, Nausea, Vomiting Genitourinary: Denies: Dysuria, Frequency, Hematuria Musculoskeletal: Denies: Arm Pain, Back Pain, Foot Pain Skin: Denies: Dryness, Rash Neurological: Denies: Balance problems, Double vision, Change in Speech, Slurred speech, Headaches, Incoordination Psychiatric: Denies: Anxiety, Depression Endocrine: Denies: Change in Body Habitus, Polydipsia, Polyuria VTE Information - Inpt Only VTE Present on Admission: No VTE Mechan Device Prophylaxis: None VTE Pharm Prophylaxis ordered?: No Patient Problems: Active and Suspected Problems (Last Updated 04/10/19 @ 15:08 by Shayla Crum) Elevated LFTs (Acute) Abnormal cardiac enzyme level (Acute) Acute congestive heart failure (Acute) - Physical Exam Vitals/I&O's: Vital Signs Temp Pulse Resp BP Pulse Ox 98 F 107 H 20 H 155/89 H 100 07/30/19 11:48 07/30/19 11:48 07/30/19 11:48 07/30/19 11:48 07/30/19 11:48 Oxygen Delivery Method Room Air Weight: 210 lb Body Mass Index (BMI) 31.0 General: Alert, Oriented x3, Cooperative, - - Minimally short of breath. HEENT: Atraumatic, PERRLA, EOMI, Normocephalic Oral: Moist Mucosa, No Gingival or Mucosal Lesions/ Ulcerations Neck: Supple, No JVD, Negative Carotid Bruits, Trachea Midline, Thyroid Normal Size and Texture Lungs: No rhonchi, No wheeze, Diminished, Rales, - - Decreased breath sounds at the bases, very faint bilateral basal crackles. Cardiovascular: Regular rate, Regular Rhythm, Normal S1, Normal S2, PMI Normal Abdomen: Bowel Sounds Present, Soft, Non Tender, Non-Distended, No Hepato- splenomegaly Extremities: No clubbing, No cyanosis, Edema - 2+ edema on the left leg, 1+ edema on the right leg. Skin: No rashes, No breakdown Lymphatic: No Cervical, Supraclavicular, or Inguinal Adenopathy Neurological: Cranial nerves II-XII grossly intact, Motor Exam 5/5 strength th roughout Psych/Mental Status: Normal Affect, Appropriate, Alert and oriented to time, place, person, mood and affect Laboratory Results 07/30/19 12:10: WBC 6.9, RBC 4.51 L, Hgb 13.5, Hct 43.3, MCV 96.0 H, MCH 29.9, MCHC 31.2 L, RDW Std Deviation 53.2 H, RDW Coeff of Kelsi 14.9 H, Plt Count 232, MPV 9.3, Immature Gran % (Auto) 0.300, Neut % (Auto) 76.9 H, Lymph % (Auto) 13.3 L, [place] % (Auto) 6.1, Eos % (Auto) 2.8, Baso % (Auto) 0.6, Absolute Neuts (auto) 5.3, Absolute Lymphs (auto) 0.91, Nucleated RBC % 0 07/30/19 12:10: Sodium 141, Potassium 4.5, Chloride 111 H, Carbon Dioxide 26.0, Anion Gap 4 L, BUN 25 H, Creatinine 1.23, Estim Creat Clear Calc 64.66, Est GFR (MDRD) Af Amer 77, Est GFR (MDRD) Non-Af 64, BUN/Creatinine Ratio 20.3 H, Glucose 101, Calcium 8.6, Total Bilirubin 1.30 H, AST 42 H, ALT 62 H, Alkaline Phosphatase 107, Troponin I 0.054 H, Total Protein 6.5, Albumin 3.3, Globulin 3.2, Albumin/Globulin Ratio 1.0 07/30/19 12:10: B-Natriuretic Peptide 2623.8 H Clinical Impression(s) from Imaging Studies Chest X-Ray 07/30/19 11:56 IMPRESSION: Moderate cardiomegaly. Mild degree of pulmonary vascular congestion. Electronically Signed: Champ Mitesh, at 12:58 EDT , Service support , Assessment/Plan All Active Problems (Last Updated 04/10/19 @ 15:08 by Shayla Crum) Elevated LFTs (Acute) Abnormal cardiac enzyme level (Acute) Acute congestive heart failure (Acute) This is a 59 years old male patient presented to the emergency room because of leg edema, shortness of breath that has been going on for 2 months along with PND and orthopnea, found to have acute congestive heart failure without prior cardiac history and he is being admitted for evaluation and treatment. #1 new onset acute congestive heart failure, unspecified: Without history of cardiac disease. EKG reviewed as above. Chest x-ray revealed cardiomegaly and pulmonary vascular congestion. BNP is highly elevated. Plan: Admit to PCU, cardiac monitoring, serial cardiac enzymes, fluid restriction to less than 1500 cc daily, 2D echocardiogram, start IV Lasix, Coreg twice daily, lisinopril, check serum TSH, pro time and INR, serum magnesium, fasting lipid profile, repeat CBC and BMP tomorrow morning, cardiology consult. Left leg is swollen more than the right leg, will do venous Doppler of the left lower extremity to rule out acute DVT. #2 abnormal cardiac enzymes: With no chest pain, no acute ischemic changes on EKG. Likely due to acute CHF. Plan: Cardiac monitoring, serial cardiac enzymes, 2D echocardiogram, cardiology consult as above. #3 elevated LFT: Likely due to hepatic congestion secondary to CHF. Plan to monitor. #4 Crohn's disease: Stable, no complaints. He is not on any treatment. #5 DVT prophylaxis: Low risk patient, no prophylaxis indicated, ambulate. This note was generated with [employer] dictation software. It may contain incorrect words, spelling, and punctuation that were not noted in checking the note before signing. Inpatient E&M: 78962 Init Hosp L3
[2019-07-30] MEDS: Furosemide 40 MG/4 ML Vial IV ×2 (14:49→21:48)
--- NOTE | 2019-07-30 15:19 | ECHOD_ITS ---
Reason For Study: CHF Procedure This was a 2D Doppler, Color Flow transthoracic echocardiogram. Exam performed portable in patient room. Left Ventricle Normal LV size. Mild concentric left ventricular hypertrophy. The estimated ejection fraction is 20 %. Stage 3 diastolic dysfunction. There is severe global hypokinesis of the left ventricle. Right Ventricle Mildly dilated right ventricle. Normal systolic function. Atria The left atrium is severely enlarged. The right atrium is moderately enlarged. Hypermobile atrial septum. Mitral Valve Bileaflet diffuse mitral valve thickening. Mild-Moderate (1-2+) eccentric mitral valve insufficiency. Tricuspid Valve Normal tricuspid valve. Moderate (2+) tricuspid valve insufficiency. Pulmonary artery systolic pressure is 58 mmHg. Aortic Valve Trisinus/trileaflet aortic valve. Mild focal aortic valve calcification. Pulmonic Valve Normal pulmonic valve. Great Vessels Normal aortic root. The pulmonary artery is normal size. Normal inferior vena cava. Pericardium/Pleural No pericardial effusion. MMode/2D Measurements & Calculations LVIDd: 5.6 cm IVSd: 1.2 cm Ao root diam: 2.9 cm LVIDs: 5.0 cm LVPWd: 1.2 cm RVDd: 3.8 cm FS: 11.7 % LAV(MOD-bp): 105.4 ml LA A4 area: 30.7 cm2 LA dimension(2D): 5.0 cm LAV(MOD-bp) Indexed: 51.0 ml/m2 LAV(MOD-sp2): 94.1 ml LAV(MOD-sp4): 114.8 ml RA A4 area: 22.1 cm2 Doppler Measurements & Calculations MV E max cirilo: 115.7 cm/sec Lat Peak E' Cirilo: 10.1 cm/sec Med Peak E' Cirilo: 19.5 cm/sec MV A max cirilo: 48.5 cm/sec E/E' lat: 11.4 E/E' med: 5.9 MV E/A: 2.4 Ao V2 max: 83.3 cm/sec LV V1 max: 68.3 cm/sec MR max cirilo: 493.1 cm/sec Ao max P.8 mmHg LV V1 max P.9 mmHg MR max P.2 mmHg PA V2 max: 70.5 cm/sec TR max cirilo: 345.2 cm/sec TR max P.0 mmHg Interpretation Summary Normal LV size. Mild concentric left ventricular hypertrophy. Hypermobile atrial septum. The estimated ejection fraction is 20 %. The left atrium is severely enlarged. The right atrium is moderately enlarged. Stage 3 diastolic dysfunction. Ordering Physician: Robinson Ibarra Referring Physician: Jonnie Machado Performed By: Eleni Freire, SAMIA, RVT
--- NOTE | 2019-07-30 15:25 | CON.PCM_ITS ---
Reason for Consult Date of Consultation: 07/30/19 Reason for Consultation: Shortness of breath History of Present Illness: The patient is a 59 year old M with no previous cardiac history presented to the emergency room with 2 to 3 months history of shortness of breath as well as pedal edema. He says that this is with exertion as well as with minimal activity. It appears to be relieved by rest. He is also had some orthopnea as well as paroxysmal nocturnal dyspnea. He has some varicose changes on his legs. He is denied any chest pain no paroxysmal nocturnal dyspnea prior to this no palpitations no dizziness no lightheadedness. He has not had a cough he is denied any fever or chills and no recent travel out of the [facility]. He was evaluated in the emergency room and noted to be mildly hypertensive with adequate pulse oximetry mildly elevated troponin as well as elevated BNP. There was also slight elevation in his liver function test. Chest x-ray revealed evidence of cardiomegaly. EKG demonstrated nonspecific changes. Cardiology was called for further evaluation and management. [] Past Medical History Allergies/Adverse Reactions: Allergies No Known Allergies Allergy (Verified 07/30/19 11:48) Home Medications: Ambulatory Orders Medication Instructions Recorded NK 06/01/19 Past Medical History (Chronic Problems): Chronic Problems (Last Updated 04/10/19 @ 15:08 by Shayla Crum) Crohn's disease (Chronic) Bilateral inguinal hernia (Chronic) Surgical History: herniorrhaphy Psychiatric History: No pertinent psych hx - *Family History Maternal Family History: Family History (Last Updated 04/10/19 @ 15:09 by Shayla Crum) Mother Colon cancer Breast cancer Cancer History Items: No pertinent history Paternal Family History: Family History (Last Updated 04/10/19 @ 15:09 by Shayla Crum) Mother Colon cancer Breast cancer Cancer History Items: No pertinent history Lives: Spouse/ Significant Other Smoking Status: Never smoker Alcohol: None Drugs: None Review of Systems - Review of Systems General: Denies: Fever, Night Sweats, Fatigue HEENT: Denies: Vision Change Cardiovascular: Reports: Shortness of Breath, Shortness of Breath at Rest, Shortness of Breath with Exertion, Orthopnea, PND, Peripheral Edema. Denies: Chest Discomfort, Palpitations, Lightheadedness, Dizziness, Near Syncope, Syncope Respiratory: Denies: Cough, Sputum Production, Hemoptysis Gastrointestinal: Denies: Hematemesis, Hematochezia, Melena Genitourinary: Denies: Dysuria, Hematuria Muscoloskeletal: Denies: Myalgias Skin: Denies: Rash Neurological: Denies: Dizziness Psychiatric: Denies: Anxiety Endocrine: Denies: Heat Intolerance Hematologic/ Lymphatic: Denies: Lymph Node Enlargement Objective: Vital Signs Temp Pulse Resp BP Pulse Ox 98.7 F 108 H 18 127/108 H 100 07/30/19 14:51 07/30/19 14:51 07/30/19 14:51 07/30/19 14:51 07/30/19 14:51 Oxygen Delivery Method Room Air Weight: 210 lb Body Mass Index (BMI) 31.0 07/30/19 12:10: WBC 6.9, RBC 4.51 L, Hgb 13.5, Hct 43.3, MCV 96.0 H, MCH 29.9, MCHC 31.2 L, Plt Count 232, MPV 9.3, Immature Gran % (Auto) 0.300, Neut % (Auto) 76.9 H, Lymph % (Auto) 13.3 L, [place] % (Auto) 6.1, Eos % (Auto) 2.8, Baso % (Auto) 0.6, Absolute Neuts (auto) 5.3, Nucleated RBC % 0 07/30/19 12:10: Sodium 141, Potassium 4.5, Chloride 111 H, Carbon Dioxide 26.0, Anion Gap 4 L, BUN 25 H, Creatinine 1.23, Est GFR (MDRD) Af Amer 77, Est GFR (MDRD) Non-Af 64, BUN/Creatinine Ratio 20.3 H, Glucose 101, Calcium 8.6, Total Bilirubin 1.30 H, Troponin I 0.054 H 07/30/19 12:10: B-Natriuretic Peptide 2623.8 H Rhythm: EKG: ECHO: Pending Stress Test: Cardiac Cath: PCI: CT Surgery: Holter monitor: EPS: PPM: CXR: Chest CT Scan: Assessment/Plan 1. Congestive heart failure * Patient presents with new onset congestive heart failure. I suspect the above is systolic in nature. The exact etiology is not clear but he may have a component of hypertensive induced heart disease. * Will obtain an echocardiogram for risk stratification * Treated with intravenous diuretics * Start oral beta-mary and BILL inhibitor * Cardiac enzymes to be cycled * May need to consider further work-up including invasive cardiac catheterization due to the abnormal troponin elevation. * 2. Hypertension * His blood pressure appears to be elevated. He was previously not diagnosed with hypertension. * Will start the patient on a beta-mary and an BILL inhibitor * Echocardiogram with assess left ventricular function. * 3. Abnormal cardiac enzymes * Patient is noted to have mildly abnormal cardiac enzymes * The above is possibly secondary to coronary artery disease. At this time we will continue to monitor. * We will start patient on aspirin. * * Thank you for allowing me to participate in the care of your patient. Please don't hesitate to call if any issues arise.
--- NOTE | 2019-07-30 16:59 | VDLE_ITS ---
Reason For Study: Swelling RIGHT LEFT CFV is compressible, spontaneous, competent GSV is normal. and demonstrates pulsatile venous flow. CFV is compressible, spontaneous, competent, Procedure and demonstrates pulsatile venous flow. Exam performed portable in patient room. FV is compressible, spontaneous, competent A preliminary report was called and/or faxed and demonstrates pulsatile venous flow. to PCU. POP V is compressible, spontaneous, phasic, competent and demonstrates normal augmentation. T/P Trunk is compressible. PTV is compressible. LT PerV is compressible. Interpretation Summary There is no evidence of left lower extremity deep vein thrombosis. Left great saphenous vein appears patent and compressible segmentally. Bilateral common femoral veins demonstrate pulsatile venous flow suggestive of proximal venous hypertension, clinical correlation would be appropriate. Ordering Physician: Raissa Mckeon Referring Physician: Jonnie Machado Performed By: Debbie Carballo RVT
[2019-07-30 17:50] LABS: Cholesterol 102 mg/dL (200); High Density Lipoprotein 50 mg/dL; Magnesium 1.7 mg/dL (1.6-2.6); Thyroid Stim Hormone (TSH) 1.86 uIU/mL (0.358-3.74); Triglycerides 56 mg/dL; Very Low Density Lipoprotein 11 mg/dL (5-40)
[2019-07-30 17:55] LABS: International Normalized Ratio 1.4; Prothrombin Time (Protime)PT. 16.3 SECONDS (11.7-14.9)
[2019-07-30] MEDS: Carvedilol 3.125 MG TABLET PO (21:44)
[2019-07-30] MEDS: 0.9% Saline Lock 10 ML Syringe IV (21:51)
[2019-07-31] VITALS (17 sets, daily range): BP systolic 108–128; BP diastolic 54–93; PULSE 86–111; RESP 16; TEMP 36.6–36.8; O2SAT 93–98
[2019-07-31 05:42] LABS: Absolute Lymphocyte Count 1.12 X10^3/uL (0.83-4.51); Absolute Neutrophil Count 3.8 X10^3/uL (2.0-7.7); Basophil# 0.05 X10^3/uL; Basophil% 0.8 % (0-1); Eosinophil# 0.38 X10^3/uL; Eosinophils% 6.3 % (0-5); Hematocrit 41.6 % (40-54); Hemoglobin 13.1 g/dL (13.0-16.5); Lymphocyte # 1.12 X10^3/ul (4.0); Lymphocyte % 18.5 % (19-41); Mean Corp Hgb Conc 31.5 g/dL (32-36); Mean Corpuscular Hgb 30.1 pg (27.0-32.0); Mean Corpuscular Volume 95.6 fL (80-94); Mean Platelet Vol. 9.5 fl (6.2-12.0); Monocyte# 0.64 X10^3/uL; Monocyte% 10.6 % (0-10); NRBC Flagged by Analyzer 0 % (0-5); Neutrophil # 3.84 X10^3/uL (2.7-7.7); Neutrophil % 63.6 % (47-70); Platelet Count 212 K/mm3 (150-450); RBC Distribution Width CV 14.8 % (11.6-14.6); RBC Distribution Width SD 51.9 fl (35.1-43.9); Red Blood Count 4.35 M/mm3 (4.6-6.2)
--- NOTE | 2019-07-31 05:55 | EKG12_ITS ---
Test Reason : AM EKG Blood Pressure : / mmHG Vent. Rate : 087 BPM Atrial Rate : 087 BPM P-R Int : 198 ms QRS Dur : 092 ms QT Int : 440 ms P-R-T Axes : 055 -70 150 degrees QTc Int : 529 ms Sinus rhythm with Premature atrial complexes Left anterior fascicular block Prolonged QT Abnormal ECG When compared with ECG of 30-JUL-2019 12:02, MANUAL COMPARISON REQUIRED, DATA IS UNCONFIRMED Confirmed by LIZA MICHAELS ([id number]), editor producer ISABEL DEWEY ([id number]) on 08/02/2019 3:21:39 PM Referred By: FALLON Confirmed By:LIZA MICHAELS
[2019-07-31 06:02] LABS: AST(SGOT) 40 U/L (15-37); Alanine Aminotransfer ALT/SGPT 60 U/L (16-61); Albumin, Serum 3.2 g/dL (3.2-5.0); Alkaline Phosphatase 98 U/L (45-117); Anion Gap 6 (5-15); BUN 25 mg/dL (7-18); BUN/Creat Ratio 19.5 RATIO (10-20); Calcium,Total 8.8 mg/dL (8.5-10.1); Chloride 109 mmol/L (98-107); Creatinine, Serum 1.28 mg/dL (0.70-1.30); EST Glomerular Filtration Rate 61 mL/min (>60); Est Glom Filt Rate - Afr Amer 74 mL/min (>60); Estimated Creatinine Clearance 62.14 ml/min; Globulin 3.2 g/dL (2.2-4.2); Glucose 97 mg/dL (74-106); Potassium 3.8 mmol/L (3.5-5.1); Protein, Total 6.4 g/dL (6.4-8.2); Sodium Level 142 mmol/L (136-145)
--- NOTE | 2019-07-31 09:56 | CASEMGMT ---
According to the [facility] website, the following are in-network tertiary facilities: [facility], [facility], [facility], [facility], [facility], [facility], [facility], [facility], and . Mitchel BUCKLEY CM
[2019-07-31] MEDS: Aspirin E.C. 81 MG Tablet PO (10:01)
[2019-07-31] MEDS: Carvedilol 3.125 MG TABLET PO (10:01)
[2019-07-31] MEDS: Lisinopril 10 MG Tablet PO (10:01)
[2019-07-31] MEDS: 0.9% Saline Lock 10 ML Syringe IV (10:01)
[2019-07-31] MEDS: 0.9% Normal Saline 1,000 ML 15 ML IV (10:04)
--- NOTE | 2019-07-31 11:41 | NURSING ---
Called report to to Berny in label sewer
--- NOTE | 2019-07-31 12:48 | PN.CARD_ITS ---
Subjectve: Patient seen and evaluated Objective: Vital Signs Temp Pulse Resp BP Pulse Ox 98.2 F 94 16 123/93 H 96 07/31/19 10:00 07/31/19 10:00 07/31/19 10:00 07/31/19 10:00 07/31/19 10:00 Oxygen Delivery Method Room Air Weight: 187 lb 9.814 oz Body Mass Index (BMI) 30.3 Intake and Output for Last 24 Hours 07/29/19 07/30/19 07/31/19 23:59 23:59 23:59 Intake Total 120 / 120 0 / 0 Output Total 475 / 475 Balance -355 / -355 0 / 0 General: Awake, Alert, Oriented x 3 HEENT: PERRL, EOMI, Sclera Non Icteric Neck: Supple, Good ROM, No Lymph Node Enlargement Lungs: Clear to auscultation Cardiovascular: Regular Rhythm, Normal S1, Normal S2, No Murmurs, No Rubs, No Gallops Vascular: No Carotid Bruits, Normal Femoral Pulses, Normal Radial Pulses, Normal Dorsalis Pedal Pulse, Normal Posterior Tibial Pulses Abdomen: Bowel Sounds Present, Soft, Non Tender, No HSM, No Organomegaly Extremities: No Cyanosis, No Clubbing, No edema Musculoskeletal: No Erythema Skin: No Rashes Lymphatic: No Lymph Node Enlargement Neurological: No Focal Motor or Sensory Deficit 07/30/19 17:00: PT 16.3 H, INR 1.4 07/30/19 17:04: Magnesium 1.7, Troponin I 0.058 H, Triglycerides 56, Cholesterol 102, LDL Cholesterol 41, VLDL Cholesterol 11, HDL Cholesterol 50 07/30/19 20:48: Troponin I 0.096 H 07/31/19 04:56: WBC 6.0, RBC 4.35 L, Hgb 13.1, Hct 41.6, MCV 95.6 H, MCH 30.1, MCHC 31.5 L, Plt Count 212, MPV 9.5, Immature Gran % (Auto) 0.200, Neut % (Auto) 63.6, Lymph % (Auto) 18.5 L, [place] % (Auto) 10.6 H, Eos % (Auto) 6.3 H, Baso % (Auto) 0.8, Absolute Neuts (auto) 3.8, Nucleated RBC % 0 05/05/20 04:56: Sodium 142, Potassium 3.8, Chloride 109 H, Carbon Dioxide 27.0, Anion Gap 6, BUN 25 H, Creatinine 1.28, Est GFR (MDRD) Af Amer 74, Est GFR (MDRD) Non-Af 61, BUN/Creatinine Ratio 19.5, Glucose 97, Calcium 8.8, Total Bilirubin 1.40 H Rhythm: EKG: ECHO: Stress Test: Cardiac Cath: PCI: CT Surgery: Holter monitor: EPS: PPM: CXR: Chest CT Scan: Medical Necessity - Tobacco Use Smoking Status: Never smoker Assessment/Plan 1. Congestive heart failure * Patient presents with new onset congestive heart failure. I suspect the above is systolic in nature. The exact etiology is not clear but he may have a component of hypertensive induced heart disease. * Will obtain an echocardiogram for risk stratification * Treated with intravenous diuretics * Start oral beta-mary and BILL inhibitor * Severe low ventricular systolic dysfunction confirmed with the cardiac catheterization. LVEDP was noted to be normal. We will continue to titrate above medications. Depending on low ventricular function improvement further recommendations will be made regarding whether he be a candidate for primary ICD implantation. 2. Hypertension * His blood pressure appears to be elevated. He was previously not diagnosed with hypertension. * Will continue the patient on a beta-mary and an BILL inhibitor * Echocardiogram to assess left ventricular function which demonstrated an EF of 20%. * 3. Abnormal cardiac enzymes * Patient underwent cardiac catheterization today which demonstrated essentially normal coronary arteries. * * Thank you for allowing me to participate in the care of your patient. Please don't hesitate to call if any issues arise. * Will see how patient is doing this afternoon and consider discharge later today or tomorrow morning
--- NOTE | 2019-07-31 13:04 | PCM.PN.HOSP ---
Patient Problems: Active and Suspected Problems (Last Updated 04/10/19 @ 15:08 by Shayla Crum) Elevated LFTs (Acute) Abnormal cardiac enzyme level (Acute) Acute congestive heart failure (Acute) Subjective: Patient seen and examined. He was admitted with a complaint of shortness of breath and is been managed for acute heart failure with reduced EF. Patient has no complaints this morning. Shortness of breath has improved. He denies any palpitations, dizziness, nausea vomiting abdominal pain. Review of systems otherwise negative. Vitals/I&O's: Vital Signs Temp Pulse Resp BP Pulse Ox 98.2 F 94 16 123/93 H 96 07/31/19 10:00 07/31/19 10:00 07/31/19 10:00 07/31/19 10:00 07/31/19 10:00 Oxygen Delivery Method Room Air Weight: 187 lb 9.814 oz Body Mass Index (BMI) 30.3 Intake and Output for Last 24 Hours 07/29/19 07/30/19 07/31/19 23:59 23:59 23:59 Intake Total 120 / 120 44.5 / 44.5 Output Total 475 / 475 Balance -355 / -355 44.5 / 44.5 General: Alert, Oriented x3, Cooperative, No apparent distress HEENT: Atraumatic, PERRLA, EOMI, Normocephalic Oral: Moist Mucosa Neck: Supple, No JVD, Negative Carotid Bruits Lungs: - - decreased breath sounds bibasally,no wheezes or crackles. On room air. Cardiovascular: Regular rate, Regular Rhythm, Normal S1, Normal S2, No murmurs Abdomen: Bowel Sounds Present, Soft, Non Tender, Non-Distended, No Hepato-splenomegaly Extremities: No clubbing, No cyanosis, Capillary Refill Less than 3 Seconds, - - 1+ bipedal pitting edema Skin: No rashes, No breakdown Musculoskeletal: No Tenderness to Palpation of Joints or Extremities Lymphatic: No Cervical, Supraclavicular, or Inguinal Adenopathy Neurological: Cranial nerves II-XII grossly intact, Neuro grossly intact, Motor Exam 5/5 strength throughout Psych/Mental Status: Normal Affect, Appropriate, Alert and oriented to time, place, person, mood and affect Laboratory Results 07/30/19 17:00: PT 16.3 H, INR 1.4 07/30/19 17:04: Magnesium 1.7, Troponin I 0.058 H, Triglycerides 56, Cholesterol 102, LDL Cholesterol 41, VLDL Cholesterol 11, HDL Cholesterol 50, TSH 1.86 07/30/19 20:48: Troponin I 0.096 H 07/31/19 04:56: WBC 6.0, RBC 4.35 L, Hgb 13.1, Hct 41.6, MCV 95.6 H, MCH 30.1, MCHC 31.5 L, RDW Std Deviation 51.9 H, RDW Coeff of Kelsi 14.8 H, Plt Count 212, MPV 9.5, Immature Gran % (Auto) 0.200, Neut % (Auto) 63.6, Lymph % (Auto) 18.5 L, [place] % (Auto) 10.6 H, Eos % (Auto) 6.3 H, Baso % (Auto) 0.8, Absolute Neuts (auto) 3.8, Absolute Lymphs (auto) 1.12, Nucleated RBC % 0 07/31/19 04:56: Sodium 142, Potassium 3.8, Chloride 109 H, Carbon Dioxide 27.0, Anion Gap 6, BUN 25 H, Creatinine 1.28, Estim Creat Clear Calc 62.14, Est GFR (MDRD) Af Amer 74, Est GFR (MDRD) Non-Af 61, BUN/Creatinine Ratio 19.5, Glucose 97, Calcium 8.8, Total Bilirubin 1.40 H, AST 40 H, ALT 60, Alkaline Phosphatase 98, Total Protein 6.4, Albumin 3.2, Globulin 3.2, Albumin/Globulin Ratio 1.0 Diagnostic Data Chest X-Ray 07/30/19 11:56 IMPRESSION: Moderate cardiomegaly. Mild degree of pulmonary vascular congestion. Electronically Signed: Champ Sagastume, at 12:58 EDT , Service support , Current Medications Acetaminophen (Tylenol) 650 mg PO Q6H PRN PRN PRN Reason: Pain Score 1-10/Temp > 100.7 F Carvedilol (Coreg) 6.25 mg PO BID DEVIN Furosemide (Lasix) 40 mg PO BID@1000,1800 DEVIN Sodium Chloride () 1,000 mls @ 15 mls/hr IV .Q48H [facility] Last Infusion: 07/31/19 13:02 Dose: 0 mls/hr Documented by: Lisinopril (Zestril) 10 mg PO DAILY DEVIN Last Admin: 07/31/19 10:01 Dose: 10 mg Documented by: Ondansetron HCl (Zofran) 4 mg IV Q8H PRN PRN PRN Reason: NAUSEA/VOMITING Senna/Docusate Sodium (Senokot-S, Sachi-Colace) 2 tablet PO BID PRN PRN PRN Reason: Constipation Sodium Chloride () 10 - 40 ml IV UD PRN PRN Reason: SALINE FLUSH Last Admin: 07/31/19 10:01 Dose: 10 ml Documented by: Zolpidem Tartrate (Ambien (Generic)) 5 mg PO QHS PRN PRN PRN Reason: INSOMNIA STROKE Vital Signs/Narrative: Vital Signs Temp Pulse Resp BP Pulse Ox 07/31/19 10:00 98.2 F 94 16 123/93 H 96 Medical Necessity - Tobacco Use Smoking Status: Never smoker Assessment/Plan All Active Problems (Last Updated 04/10/19 @ 15:08 by Shayla Crum) Elevated LFTs (Acute) Abnormal cardiac enzyme level (Acute) Acute congestive heart failure (Acute) 1. Acute HFrEF Echo done showed EF of 20%. BNP was 2623 Patient currently on IV Lasix 40 mg twice daily, lisinopril. Cardiology on board. 2. Abnormal cardiac enzymes: Had no chest pain on admission and no EKG changes. Thought to be due to acute heart failure. Had cardiac cath today which showed normal coronary arteries. Currently on beta-mary and BILL inhibitor. 3. Elevated liver enzymes: Likely due to hepatic congestion from CHF. Will trend. 4. Crohn's disease: Stable. Not on any treatments now. DVT prophylaxis: Give Lovenox. Inpatient E&M: [id number] [facility] L3
--- NOTE | 2019-07-31 13:05 | CL.D_ITS ---
Patient Name: CHAY DAI Study Date: 07/31/2019 Performing: Robinson Ibarra MD Ht: 69 inches 175 cm : 1960 Wt: 187.6 lbs 85 kg Age: 59 Gender: male BSA: 2.01 PROCEDURE(S) PERFORMED [id number]/LV CLINICAL PROFILE AND INDICATIONS Indications: Cardiomyopathy Heart Failure: NYHA Class: 3, Newly Diagnosed: Yes, Heart Failure Type: Systolic Stress/Imaging Stress/Image Study Performed: No CONCLUSIONS Normal coronary arteries Cardiomyopathy: Dilated RECOMMENDATIONS Medical therapy DESCRIPTION OF PROCEDURE The patient arrived to the procedure lab. The risks and benefits of the procedure as well as a full d escription of our services here and current unavailability of surgical backup were fully explained to the patient and/or their significant other prior to the catheterization. The Timeout was completed, verifying the correct patient and procedure. The patient's procedural site was prepped and draped in the usual fashion. Local anesthetic was given subcutaneously to right radial region with Lidocaine 2% . Using a modified Seldinger technique, arterial access was obtained via the right radial artery, a 5 Fr sheath was inserted. Left Coronary Artery selective angiography was performed in multiple views u sing a 5 Fr. 4.0 Capulin catheter. Right Coronary Artery selective angiography was then performed in mu ltiple views using a 5 Fr. 4.0 Capulin catheter. Left Ventriculography was performed in MENDEZ projection using a 5 Fr. Pigtail catheter. LV to AO pullback pressures were then recorded.The arterial sheath was pulled and a TR Band was applied for hemostasis, 12cc of air placed in TR band CORONARY ANGIOGRAPHY DOMINANCE: Right Dominant LEFT HEART ASSESSMENT Left Ventricular Ejection Fraction: by LV Gram 20 % Global Hypokinesis - Severe Depressed Left Ventricular systolic function LEFT MAIN: Angiographically normal LEFT ANTERIOR DESCENDING ARTERY: Angiographically normal CIRCUMFLEX ARTERY: Angiographically normal RIGHT CORONARY ARTERY: Angiographically normal COMPLICATIONS No Complications PROCEDURE MEDICATIONS Versed 1 mg IV Fentanyl 50 mcg IV Versed 1 mg IV Oxygen: 2 L/min via nasal cannula SUMMARY OF HEMODYNAMIC DATA Time AIR REST ECG 11:38:23 AOp 96/65 (79) 12:26:07 AO 99/72 (83) SA 12:26:17 AOp 97/74 (83) 12:26:20 LV 92/4, 15 12:33:46 LV 93/9, 17 12:34:54 LVp 93/9, 19 12:35:04 AO 97/70 (82) 12:35:09 Signed By Robinson Ibarra MD On 07/31/2019 13:03:58 Robinson Ibarra MD
--- NOTE | 2019-07-31 14:41 | CASEMGMT ---
MARCIO DUGAN Assessment: Phone interview with patient for initial transition planning/care coordination assessment. MARCIO DUGAN introduced self and role at [facility], pt voices understanding and consents to assessment at this time. Pt is A/Ox4 at this time and answers all questions appropriately at this time. Care providers, pharmacy, and demographics verified at this time. Presentation: Bilat swelling to lower extremities, SOB with exertion x4 months Admitting dx: Acute CHF PCP: Carter Salazar Specialists: Pt states no current specialists. Preferred Pharmacy: [facility] Insurance: [employer] Just for me Prescription Benefit: [employer] Just for me Living Will/HPOA: Pt states no LW/HPOA and declines AD info at this time. LNOK: Francoise Ho, Living Arrangements: Pt states lives in 2 story home with his , 3 daughters, 2 sons-in-law, and grandchildren. Pt states is independent with ADL's. Transportation: Pt states drives self and states no transportation concerns at this time. DME/HHC: Pt states no current DME or need for DME at this time. Pt states no hx of HHC or SNF in the past. Pt states no concerns with going home at time of discharge. 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 Pt states does not smoke or drink ETOH. Pt states no further concerns/needs at this time. CM to follow for any further discharge planning/needs. Advised pt to ask for CM if any further questions/concerns/needs arise, voices understanding. Pt Goal: Home Plan[place] MARCIO DUGAN
[2019-07-31 16:13] LABS: Magnesium 1.8 mg/dL (1.6-2.6)
[2019-07-31] MEDS: Furosemide 40 MG Tablet PO (16:56)
[2019-07-31] MEDS: Carvedilol 6.25 MG Tablet PO (21:00)
[2019-08-01 02:59] VITALS: PULSE 93
[2019-08-01 03:00] VITALS: BP 107/61; PULSE 86; RESP 14; TEMP 36.6; O2SAT 96
[2019-08-01 05:13] LABS: Absolute Lymphocyte Count 1.11 X10^3/uL (0.83-4.51); Basophil# 0.06 X10^3/uL; Basophil% 0.9 % (0-1); Eosinophil# 0.52 X10^3/uL; Eosinophils% 8.1 % (0-5); Hematocrit 41.2 % (40-54); Hemoglobin 13.1 g/dL (13.0-16.5); Lymphocyte # 1.11 X10^3/ul (4.0); Lymphocyte % 17.3 % (19-41); Mean Corp Hgb Conc 31.8 g/dL (32-36); Mean Corpuscular Hgb 30.1 pg (27.0-32.0); Mean Corpuscular Volume 94.7 fL (80-94); Mean Platelet Vol. 9.7 fl (6.2-12.0); Monocyte# 0.66 X10^3/uL; Monocyte% 10.3 % (0-10); NRBC Flagged by Analyzer 0 % (0-5); Neutrophil # 4.04 X10^3/uL (2.7-7.7); Neutrophil % 63.1 % (47-70); Platelet Count 204 K/mm3 (150-450); RBC Distribution Width CV 14.6 % (11.6-14.6); RBC Distribution Width SD 50.8 fl (35.1-43.9); Red Blood Count 4.35 M/mm3 (4.6-6.2); White Blood Count 6.4 K/mm3 (4.4-11.0)
[2019-08-01 05:28] LABS: Anion Gap 6 (5-15); BUN 24 mg/dL (7-18); BUN/Creat Ratio 23.1 RATIO (10-20); Calcium,Total 8.3 mg/dL (8.5-10.1); Chloride 107 mmol/L (98-107); Creatinine, Serum 1.04 mg/dL (0.70-1.30); EST Glomerular Filtration Rate 78 mL/min (>60); Est Glom Filt Rate - Afr Amer 94 mL/min (>60); Estimated Creatinine Clearance 76.48 ml/min; Glucose 113 mg/dL (74-106); Sodium Level 139 mmol/L (136-145)
[2019-08-01 07:01] VITALS: PULSE 81
[2019-08-01 07:30] VITALS: O2SAT 96
[2019-08-01 08:06] LABS: Magnesium 1.7 mg/dL (1.6-2.6)
[2019-08-01 08:52] VITALS: BP 130/83; PULSE 101; RESP 16; TEMP 36.8; O2SAT 99
[2019-08-01] MEDS: Carvedilol 6.25 MG Tablet PO (08:52)
[2019-08-01] MEDS: Furosemide 40 MG Tablet PO (08:52)
[2019-08-01] MEDS: Lisinopril 10 MG Tablet PO (08:52)
--- NOTE | 2019-08-01 11:04 | PCM.DC ---
- Discharge Diagnoses Current Active Problems: Current Active and Chronic Problems (Last Updated 04/10/19 @ 15:08 by Shayla Crum) Elevated LFTs (Acute) Abnormal cardiac enzyme level (Acute) Acute congestive heart failure (Acute) You will use the following diet at home:: Cardiac Your food should be the consistency of: Regular Your liquids should be the consistency of: Regular/Thin Discharge Activity: Return to Normal Activity Weight Bearing Status: Weight bearing as tolerated Call your doctor if you observe: Shortness of breath, Dizziness, Fainting spells, Swelling in the ankles Instructions: Taking Medication to Control Heart Failure, What Is Heart Failure?, Heart Failure: Tracking Your Weight, Heart Failure: Evaluating Your Heart, Heart Failure: Medications to Help Your Heart, ED Heart Disease Risk Factors Additional Instructions: to wear Holter monitor for 24 hours to assess for arrhythmias; results to be sent to Dr Ibarra Allergies/Adverse Reactions: Allergies No Known Allergies Allergy (Verified 07/30/19 11:48) Medications to take at Discharge Carvedilol [Coreg (Beta Marilou)] 12.5 mg PO BID #60 tab 08/01/19 Furosemide [Lasix] 40 mg PO BID@1000,1800 #60 tab 08/01/19 Lisinopril [Zestril] 10 mg PO DAILY #30 tab 08/01/19 Potassium Chloride [K-Dur] 20 meq PO DAILY #30 tab 08/01/19 The following prescriptions were given: Carvedilol [Coreg (Beta Marilou)] 12.5 mg PO BID #60 tab Transmission Status: Pending to [facility] Potassium Chloride [K-Dur] 20 meq PO DAILY #30 tab Transmission Status: Pending to [facility] Furosemide [Lasix] 40 mg PO BID@1000,1800 #60 tab Transmission Status: Received by [facility] Lisinopril [Zestril] 10 mg PO DAILY #30 tab Transmission Status: Received by [facility] Orders to be completed after discharge: Cardiac Holter Monitor, Set-Up [[facility]] Location: None Selected Primary Care Physician: Jonnie Machado MD [Primary Care Provider] - Please follow up with your Primary Care Physician in: 1-2 weeks Test Results: Test results from this visit will be discussed in further detail at your follow-up appointment, if applicable. Please Follow Up With: Robinson Ibarra MD When: 1 week Proposed Discharge Date: 08/01/19
--- NOTE | 2019-08-01 11:07 | DS.PCM_ITS ---
Discharge Date and Diagnosis Date of Admission: 07/30/19 Date of Discharge: 08/01/19 - Primary Discharge Diagnosis Active and Suspected Problems (Last Updated 04/10/19 @ 15:08 by Shayla Crum) Elevated LFTs (Acute) Abnormal cardiac enzyme level (Acute) Acute congestive heart failure with reduced EF(Acute) - Secondary Discharge Diagnosis Chronic Problems (Last Updated 04/10/19 @ 15:08 by Shayla Crum) Crohn's disease (Chronic) Bilateral inguinal hernia (Chronic) Hospital Course and Treatment Imaging Results: Diagnostic Data Chest X-Ray 07/30/19 11:56 IMPRESSION: Moderate cardiomegaly. Mild degree of pulmonary vascular congestion. Electronically Signed: Champ Sagastume, at 12:58 EDT , Service support , cardiology- Dr Ibarra Operations: None Procedures: 2-D Echocardiogram, Cardiac catheterization Summary of Care Provided: The patient is a 59 year old M with a past medical history of Crohn's disease and bilateral inguinal hernia. He was admitted through the ED on 07/30/2019 with a complaint of shortness of breath and lower extremity edema. Symptoms had been going on for about 2 weeks and gradually worsening to the point where with minimal exertion, he got very short of breath. He had associated orthopnea and PND. He denies any chest pain, dizziness or lightheadedness I denied having any cardiac history. On admission, he was saturating 100% on room air. BNP was 2623 and initial troponin was 0.054. LFTs show slightly elevated bilirubin and transaminases and chest x-ray showed cardiomegaly with mild bilateral pulmonary vascular congestion. He was admitted and managed for acute heart failure of unknown EF. Started on diuresis with IV Lasix 40 mg twice daily and put on fluid restriction at thousand 500 cc daily. He also had monitoring of his intake and output. Cardiology was consulted. 2D echo done showed normal left ventricular size with mild concentric left ventricular hypertrophy and hypermobile atrial septum with estimated EF of 20% and severely enlarged left atrium and right atrium as well as stage III diastolic dysfunction. He subsequently had cardiac cath which showed normal coronary arteries and dilated cardiomyopathy. Plan was for medical management. Patient was also put on carvedilol. Shortness of breath resolved and patient felt much better. He was discharged home on 08/01/2019 with a prescription for p.o. Lasix 40 mg twice daily as well as potassium supplementation. Of note, patient was also noted to have short beat run of V. tach which were asymptomatic. Cardiology was aware of this and recommended a 24-hour Holter monitor at time of discharge. Patient is to have 24-hour Holter monitor read by Dr. Stacey allred further decision about plan of care to be made by cardiology after Holter is read. He was discharged also on carvedilol 12.5 mg twice daily. He is to follow-up with his primary care doctor and cardiology within 1 to 2 weeks. Patient seen and examined prior to discharge. He had no complaints. He felt well and was ready to go home. Review of systems otherwise negative. Labs and vitals reviewed. Home medications reviewed and reconciled. o/e: Vital Signs Temp Pulse Resp BP Pulse Ox 98.2 F 101 H 16 130/83 H 99 08/01/19 08:52 08/01/19 08:52 08/01/19 08:52 08/01/19 08:52 08/01/19 08:52 [] General: Alert, Oriented x3, Cooperative, No apparent distress HEENT: Atraumatic, PERRLA, EOMI, Normocephalic Oral: Moist Mucosa Neck: Supple, No JVD, Negative Carotid Bruits Lungs: - - decreased breath sounds bibasally,no wheezes or crackles. On room air. Cardiovascular: Regular rate, Regular Rhythm, Normal S1, Normal S2, No murmurs Abdomen: Bowel Sounds Present, Soft, Non Tender, Non-Distended, No Hepato- splenomegaly Extremities: No clubbing, No cyanosis, Capillary Refill Less than 3 Seconds, - - minimal bipedal pitting edema Skin: No rashes, No breakdown Musculoskeletal: No Tenderness to Palpation of Joints or Extremities Lymphatic: No Cervical, Supraclavicular, or Inguinal Adenopathy Neurological: Cranial nerves II-XII grossly intact, Neuro grossly intact, Motor Exam 5/5 strength throughout Psych/Mental Status: Normal Affect, Appropriate, Alert and oriented to time, place, person, mood and affect Plan is for DC home. - Physical Exam Vitals/I&O's: Vital Signs Temp Pulse Resp BP Pulse Ox 98.2 F 101 H 16 130/83 H 99 08/01/19 08:52 08/01/19 08:52 08/01/19 08:52 08/01/19 08:52 08/01/19 08:52 Oxygen Delivery Method Room Air Weight: 187 lb 9.814 oz Body Mass Index (BMI) 30.3 Intake and Output for Last 24 Hours 07/30/19 07/31/19 08/01/19 23:59 23:59 23:59 Intake Total 120 / 120 789.5 / 789.5 Output Total 475 / 475 Balance -355 / -355 789.5 / 789.5 Laboratory Results 07/31/19 04:56: Magnesium 1.8 08/01/19 04:28: WBC 6.4, RBC 4.35 L, Hgb 13.1, Hct 41.2, MCV 94.7 H, MCH 30.1, MCHC 31.8 L, RDW Std Deviation 50.8 H, RDW Coeff of Kelsi 14.6, Plt Count 204, MPV 9.7, Immature Gran % (Auto) 0.300, Neut % (Auto) 63.1, Lymph % (Auto) 17.3 L, [place] % (Auto) 10.3 H, Eos % (Auto) 8.1 H, Baso % (Auto) 0.9, Absolute Neuts (auto) 4.0, Absolute Lymphs (auto) 1.11, Nucleated RBC % 0 08/01/19 04:28: Sodium 139, Potassium 4.0, Chloride 107, Carbon Dioxide 26.0, Anion Gap 6, BUN 24 H, Creatinine 1.04, Estim Creat Clear Calc 76.48, Est GFR (MDRD) Af Amer 94, Est GFR (MDRD) Non-Af 78, BUN/Creatinine Ratio 23.1 H, Glucose 113 H, Calcium 8.3 L 08/01/19 04:28: Magnesium 1.7 Current Medications Acetaminophen (Tylenol) 650 mg PO Q6H PRN PRN PRN Reason: Pain Score 1-10/Temp > 100.7 F Carvedilol (Coreg) 6.25 mg PO BID [facility] Last Admin: 08/01/19 08:52 Dose: 6.25 mg Documented by: Furosemide (Lasix) 40 mg PO BID@1000,1800 [facility] Last Admin: 08/01/19 08:52 Dose: 40 mg Documented by: Sodium Chloride () 1,000 mls @ 15 mls/hr IV .Q48H [facility] Last Infusion: 07/31/19 13:02 Dose: 0 mls/hr Documented by: Lisinopril (Zestril) 10 mg PO DAILY [facility] Last Admin: 08/01/19 08:52 Dose: 10 mg Documented by: Ondansetron HCl (Zofran) 4 mg IV Q8H PRN PRN PRN Reason: NAUSEA/VOMITING Senna/Docusate Sodium (Senokot-S, Sachi-Colace) 2 tablet PO BID PRN PRN PRN Reason: Constipation Sodium Chloride () 10 - 40 ml IV UD PRN PRN Reason: SALINE FLUSH Last Admin: 07/31/19 10:01 Dose: 10 ml Documented by: Zolpidem Tartrate (Ambien (Generic)) 5 mg PO QHS PRN PRN PRN Reason: INSOMNIA Discharge Diet: Low fat/ Low Cholesterol Discharge Activity: Return to Normal Activity Weight Bearing Status: Weight bearing as tolerated Call your doctor if you observe: Shortness of breath, Dizziness, Fainting spells, Swelling in the ankles Home Medications: Medications to take at Discharge Carvedilol [Coreg (Beta Marilou)] 12.5 mg PO BID #60 tab 08/01/19 Furosemide [Lasix] 40 mg PO BID@1000,1800 #60 tab 08/01/19 Lisinopril [Zestril] 10 mg PO DAILY #30 tab 08/01/19 Potassium Chloride [K-Dur] 20 meq PO DAILY #30 tab 08/01/19 Following Prescrptions Were Given to Patient: Carvedilol [Coreg (Beta Marilou)] 12.5 mg PO BID #60 tab Transmission Status: Received by [facility] Potassium Chloride [K-Dur] 20 meq PO DAILY #30 tab Transmission Status: Received by [facility] Furosemide [Lasix] 40 mg PO BID@1000,1800 #60 tab Transmission Status: Received by [facility] Lisinopril [Zestril] 10 mg PO DAILY #30 tab Transmission Status: Received by [facility] Other Amb Orders: Cardiac Holter Monitor, Set-Up [[facility]] Location: None Selected Primary Care Physician: Jonnie Machado MD [Primary Care Provider] - Please follow up with your Primary Care Physician in: 1-2 weeks Please Follow Up With: Robinson Ibarra MD When: 1 week Patient Instructions: Taking Medication to Control Heart Failure, What Is Heart Failure?, Heart Failure: Tracking Your Weight, Heart Failure: Evaluating Your Heart, Heart Failure: Medications to Help Your Heart, ED Heart Disease Risk Factors Disposition: Home Minutes spent on discharge:: 45 Patient Condition:: Stable Medical Necessity - Tobacco Use Smoking Status: Never smoker Meaningful Use Info Meaningful Use Diagnoses (Choose all that apply): CHF - CHF BILL/ARB ordered at discharge?: Yes Documented LVEF (%): 20 Inpatient E&M: 50003 Disch Hosp
== END 2019-08-01 12:02 | disposition home or self-care (01) | DRG 286 ==
LOC: ED 12:42 → PCU 13:42
PROVIDERS: Internal Medicine Cardiovascular Disease; Admitting Provider Hospitalist; Emergency Provider Emergency Medicine; PCP Family Medicine; Visit Provider Student in an Organized Health Care Education/Training Program
DX: I11.0 Hypertensive heart disease with heart failure (principal); I50.21 Acute systolic (congestive) heart failure; K50.90 Crohn's disease, unspecified, without complications; I47.2 Ventricular tachycardia; K76.1 Chronic passive congestion of liver; K40.20 Bilateral inguinal hernia, without obstruction or gangrene, not specified as recurrent; I42.0 Dilated cardiomyopathy; Z79.899 Other long term (current) drug therapy; Z80.0 Family history of malignant neoplasm of digestive organs; Z80.3 Family history of malignant neoplasm of breast
CPT/HCPCS: 36415; 71046; 80048; 80053; 80061; 83735; 83880; 84443; 84484; 85025; 85610; 93005; 93306; 93458; 93971; 97802; 99152; 99153; 99251; 99285; J7030; Q9967; A4216; C1769; C1894; G0463; J1940

== ENCOUNTER → 2019-08-01 12:03 | Outpatient (CLI) | payer OTHER, SELFPAY ==
[2019-07-30 15:17] VITALS: BMI 30.3
== END ==
PROVIDERS: PCP Family Medicine; Referring Provider Student in an Organized Health Care Education/Training Program; Visit Provider Student in an Organized Health Care Education/Training Program
DX: I49.9 Cardiac arrhythmia, unspecified (principal)
CPT/HCPCS: 93225; 93226

== ENCOUNTER → 2019-08-22 11:11 | Outpatient (CLI) | payer OTHER, SELFPAY ==
[2019-08-08 10:49] VITALS: BMI 35.7
[2019-08-22 13:28] LABS: Anion Gap 9 (5-15); BUN 41 mg/dL (7-18); BUN/Creat Ratio 25.9 RATIO (10-20); Calcium,Total 8.8 mg/dL (8.5-10.1); Chloride 106 mmol/L (98-107); Creatinine, Serum 1.58 mg/dL (0.70-1.30); EST Glomerular Filtration Rate 48 mL/min (>60); Est Glom Filt Rate - Afr Amer 58 mL/min (>60); Glucose 86 mg/dL (74-106); Magnesium 2.2 mg/dL (1.6-2.6); Potassium 4.5 mmol/L (3.5-5.1); Sodium Level 138 mmol/L (136-145)
== END ==
PROVIDERS: PCP Family Medicine; Referring Provider Internal Medicine Cardiovascular Disease; Visit Provider Internal Medicine Cardiovascular Disease
DX: I47.2 Ventricular tachycardia (principal)
CPT/HCPCS: 36415; 80048; 83735; 93225; 93226

== ENCOUNTER → 2019-09-20 14:33 | Outpatient (CLI) | payer OTHER, SELFPAY ==
[2019-08-08 10:49] VITALS: BMI 35.7
[2019-09-20 17:08] LABS: Anion Gap 7 (5-15); BUN 27 mg/dL (7-18); BUN/Creat Ratio 21.6 RATIO (10-20); Calcium,Total 8.5 mg/dL (8.5-10.1); Chloride 107 mmol/L (98-107); Creatinine, Serum 1.25 mg/dL (0.70-1.30); EST Glomerular Filtration Rate 63 mL/min (>60); Est Glom Filt Rate - Afr Amer 76 mL/min (>60); Glucose 74 mg/dL (74-106); Potassium 4.1 mmol/L (3.5-5.1); Sodium Level 140 mmol/L (136-145)
== END ==
PROVIDERS: PCP Family Medicine; Referring Provider Internal Medicine Cardiovascular Disease; Visit Provider Internal Medicine Cardiovascular Disease
DX: I27.21 Secondary pulmonary arterial hypertension (principal); I25.2 Old myocardial infarction; I36.1 Nonrheumatic tricuspid (valve) insufficiency; I42.8 Other cardiomyopathies; I47.2 Ventricular tachycardia; I11.0 Hypertensive heart disease with heart failure; I50.41 Acute combined systolic (congestive) and diastolic (congestive) heart failure; R79.89 Other specified abnormal findings of blood chemistry
CPT/HCPCS: 36415; 80048

== ENCOUNTER → 2019-09-26 12:47 | Outpatient (CLI) | payer OTHER, SELFPAY ==
[2019-08-08 10:49] VITALS: BMI 35.7
--- NOTE | 2019-09-26 12:47 | ECHOD_ITS ---
Reason For Study: CHF Procedure This was a 2D Doppler, Color Flow transthoracic echocardiogram. Exam performed in department. Left Ventricle Normal LV size. The estimated ejection fraction is 45 %. Stage 1 diastolic dysfunction. No regional wall motion abnormalities noted. Right Ventricle Normal RV size. Normal systolic function. Atria Normal left atrium. Normal right atrium. Mitral Valve Normal mitral valve. Mild (1+) eccentric mitral valve insufficiency. Tricuspid Valve Normal tricuspid valve. Mild tricuspid valve insufficiency. Aortic Valve Trisinus/trileaflet aortic valve. Pulmonic Valve Normal pulmonic valve. Great Vessels Normal aortic root. The pulmonary artery is normal size. Normal inferior vena cava. Pericardium/Pleural No pericardial effusion. MMode/2D Measurements & Calculations LVIDd: 5.0 cm IVSd: 1.1 cm Ao root diam: 3.0 cm LVIDs: 3.7 cm LVPWd: 0.99 cm RVDd: 3.7 cm FS: 25.4 % LAV(MOD-bp): 64.9 ml EDV(MOD-sp4): 105.0 ml EDV(MOD-sp2): 121.8 ml LAV(MOD-bp) Indexed: 33.2 ml/m2 ESV(MOD-sp4): 59.9 ml EF(MOD-sp2): 37.5 % LAV(MOD-sp2): 55.9 ml EF(MOD-sp4): 42.9 % LAV(MOD-sp4): 71.8 ml SV(MOD-sp4): 45.1 ml SV(MOD-sp2): 45.6 ml LA A4 area: 22.9 cm2 LA dimension(2D): 3.7 cm RA A4 area: 20.0 cm2 Doppler Measurements & Calculations MV E max cirilo: 46.9 cm/sec Lat Peak E' Cirilo: 4.8 cm/sec Med Peak E' Cirilo: 4.8 cm/sec MV A max cirilo: 65.4 cm/sec E/E' lat: 9.7 E/E' med: 9.7 MV E/A: 0.72 Ao V2 max: 129.9 cm/sec LV V1 max: 98.8 cm/sec PA V2 max: 98.2 cm/sec Ao max P.8 mmHg LV V1 max P.9 mmHg Interpretation Summary Normal LV size. The estimated ejection fraction is 45 %. Mild (1+) eccentric mitral valve insufficiency. Mild tricuspid valve insufficiency. Stage 1 diastolic dysfunction. The global longitudinal strain is moderately abnormal. The global longitudinal strain = -11.9% (abnormal). Compared to previous study, the left ventricular systolic function has improved.. Ordering Physician: Robinson Ibarra Referring Physician: Jonnie Machado Performed By: Paul, Michelle, RDCS
== END ==
PROVIDERS: PCP Family Medicine; Referring Provider Internal Medicine Cardiovascular Disease; Visit Provider Internal Medicine Cardiovascular Disease
DX: I50.41 Acute combined systolic (congestive) and diastolic (congestive) heart failure (principal); I51.9 Heart disease, unspecified; I42.8 Other cardiomyopathies
CPT/HCPCS: 93306

== ENCOUNTER → 2020-03-31 14:09 | Outpatient (CLI) | payer OTHER, SELFPAY ==
[2020-03-31 13:27] VITALS: BMI 28.3
[2020-03-31 15:20] LABS: Anion Gap 4 (5-15); BUN 16 mg/dL (7-18); BUN/Creat Ratio 16.6 RATIO (10-20); Calcium,Total 8.5 mg/dL (8.5-10.1); Chloride 108 mmol/L (98-107); Creatinine, Serum 0.96 mg/dL (0.70-1.30); EST Glomerular Filtration Rate 84 mL/min (>60); Est Glom Filt Rate - Afr Amer 102 mL/min (>60); Glucose 89 mg/dL (74-106); Potassium 4.6 mmol/L (3.5-5.1); Sodium Level 139 mmol/L (136-145)
== END ==
PROVIDERS: PCP Family Medicine; Referring Provider Nurse Practitioner Family; Visit Provider Nurse Practitioner Family
DX: I42.8 Other cardiomyopathies (principal); R06.00 Dyspnea, unspecified
CPT/HCPCS: 36415; 80048; 83880

== ENCOUNTER → 2020-04-15 13:28 | Outpatient (CLI) | payer OTHER, SELFPAY ==
[2020-03-31 13:27] VITALS: BMI 28.3
--- NOTE | 2020-04-15 13:39 | ECHOD_ITS ---
Reason For Study: Dyspnea/SOB Procedure This was a 2D Doppler, Color Flow transthoracic echocardiogram. Exam performed in department. Left Ventricle Normal LV size. The estimated ejection fraction is 45 %. There is borderline global hypokinesis of the left ventricle. Right Ventricle Normal RV size. Normal systolic function. Atria Normal left atrium. Normal right atrium. Mitral Valve Normal mitral valve. Mild (1+) eccentric mitral valve insufficiency. Tricuspid Valve Normal tricuspid valve. Aortic Valve Normal aortic valve. Trisinus/trileaflet aortic valve. Pulmonic Valve Normal pulmonic valve. Great Vessels Normal aortic root. The pulmonary artery is normal size. Normal inferior vena cava. Pericardium/Pleural No pericardial effusion. MMode/2D Measurements & Calculations LVIDd: 5.0 cm IVSd: 1.2 cm Ao root diam: 3.5 cm LVIDs: 3.8 cm LVPWd: 0.96 cm LA dimension: 4.2 cm RVDd: 3.5 cm FS: 24.0 % LAV(MOD-bp): 84.8 ml LA A4 area: 25.7 cm2 RA A4 area: 18.7 cm2 LAV(MOD-bp) Indexed: 43.4 ml/m2 LAV(MOD-sp2): 72.3 ml LAV(MOD-sp4): 85.5 ml Time Measurements MV dec time: 0.17 sec Doppler Measurements & Calculations MV E max cirilo: 66.4 cm/sec Lat Peak E' Cirilo: 6.1 cm/sec Med Peak E' Cirilo: 5.4 cm/sec MV A max cirilo: 58.1 cm/sec E/E' lat: 11.0 E/E' med: 12.4 MV E/A: 1.1 MV V2 max: 72.5 cm/sec MV P1/2t max cirilo: 73.2 cm/sec Ao V2 max: 119.7 cm/sec MV max P.1 mmHg MV P1/2t: 67.1 msec Ao max P.7 mmHg MV V2 mean: 45.1 cm/sec MV dec slope: 319.4 cm/sec2 MV mean P.95 mmHg MVA(P1/2t): 3.3 cm2 MV V2 VTI: 21.0 cm LV V1 max: 95.5 cm/sec PA V2 max: 89.7 cm/sec LV V1 max P.6 mmHg Interpretation Summary Normal LV size. The estimated ejection fraction is 45 %. There is borderline global hypokinesis of the left ventricle. Mild (1+) eccentric mitral valve insufficiency. The global longitudinal strain is moderately abnormal. The global longitudinal strain = -12.6% (abnormal). Compared to prior study, there is no significant change. Ordering Physician: Cali Styles Referring Physician: Jonnie Machado Performed By: Jatin Ruffin RCS
== END ==
PROVIDERS: PCP Family Medicine; Referring Provider Nurse Practitioner Family; Visit Provider Nurse Practitioner Family
DX: R06.00 Dyspnea, unspecified (principal); R06.02 Shortness of breath; I42.8 Other cardiomyopathies
CPT/HCPCS: 93306

== ENCOUNTER → 2020-10-30 14:20 | Outpatient (CLI) | payer OTHER, SELFPAY ==
[2020-10-30 13:33] VITALS: BMI 34.3
[2020-10-30 16:19] LABS: Absolute Lymphocyte Count 1.01 X10^3/uL (0.83-4.51); Basophil# 0.04 X10^3/uL; Basophil% 0.6 % (0-1); Eosinophil# 0.31 X10^3/uL; Eosinophils% 4.4 % (0-5); Hematocrit 44.7 % (40-54); Hemoglobin 14.5 g/dL (13.0-16.5); Lymphocyte # 1.01 X10^3/ul (0.83-4.51); Lymphocyte % 14.2 % (19-41); Mean Corp Hgb Conc 32.4 g/dL (32-36); Mean Corpuscular Hgb 30.9 pg (27.0-32.0); Mean Corpuscular Volume 95.1 fL (80-94); Mean Platelet Vol. 10.1 fl (6.2-12.0); Monocyte% 9.9 % (0-10); NRBC Flagged by Analyzer 0 % (0-5); Neutrophil # 5.01 X10^3/uL (2.7-7.7); Neutrophil % 70.6 % (47-70); Platelet Count 280 K/mm3 (150-450); RBC Distribution Width CV 14.1 % (11.6-14.6); RBC Distribution Width SD 49.3 fl (35.1-43.9); White Blood Count 7.1 K/mm3 (4.4-11.0)
[2020-10-30 16:37] LABS: BNP,B-Type NATRIURETIC PEPTIDE 766.7 pg/mL (0-100)
[2020-10-30 16:48] LABS: Anion Gap 10 (5-15); BUN 29 mg/dL (7-18); BUN/Creat Ratio 21.5 RATIO (10-20); Calcium,Total 9.1 mg/dL (8.5-10.1); Chloride 102 mmol/L (98-107); Creatinine, Serum 1.35 mg/dL (0.70-1.30); EST Glomerular Filtration Rate 57 mL/min (>60); Est Glom Filt Rate - Afr Amer 69 mL/min (>60); Glucose 92 mg/dL (74-106); Magnesium 1.9 mg/dL (1.6-2.6); Potassium 3.6 mmol/L (3.5-5.1); Sodium Level 139 mmol/L (136-145); T4 Free Direct 1.53 ng/dL (0.76-1.46); Thyroid Stim Hormone (TSH) 1.16 uIU/mL (0.358-3.74)
== END ==
PROVIDERS: PCP Family Medicine; Referring Provider Nurse Practitioner Family; Visit Provider Nurse Practitioner Family
DX: I42.8 Other cardiomyopathies (principal); I10 Essential (primary) hypertension; I48.91 Unspecified atrial fibrillation
CPT/HCPCS: 36415; 80048; 83735; 83880; 84439; 84443; 85025

== ENCOUNTER 2020-12-22 10:15 | Day surgery (SDC) | payer OTHER, SELFPAY ==
[2020-12-04 17:25] LABS: Anion Gap 5 (5-15); BUN 22 mg/dL (7-18); BUN/Creat Ratio 15.8 RATIO (10-20); Calcium,Total 8.8 mg/dL (8.5-10.1); Chloride 107 mmol/L (98-107); Creatinine, Serum 1.39 mg/dL (0.70-1.30); EST Glomerular Filtration Rate 55 mL/min (>60); Est Glom Filt Rate - Afr Amer 67 mL/min (>60); Glucose 112 mg/dL (74-106); Potassium 4.2 mmol/L (3.5-5.1); Sodium Level 140 mmol/L (136-145)
[2020-12-19 09:32] VITALS: BMI 28.1
--- NOTE | 2020-12-22 08:51 | PCM.HP.BLA ---
History and Physical Date of Admission: 12/22/20 Pleasant 60-year-old gentleman who was in the hospital after presenting with 2 to 3-month history of shortness of breath and pedal edema in July 2019. He also had orthopnea and paroxysmal nocturnal dyspnea. He was evaluated had an echocardiogram performed which demonstrated severe global hypokinesis with an estimated ejection fraction of 20% and biatrial enlargement. Stage III diastolic dysfunction was noted. He was diuresed and underwent a left heart catheterization due to an abnormal troponin enzyme. His coronary arteries were noted to be normal. He was started on a beta-mary, BILL inhibitor, diuretic, and potassium supplementation. A repeat echocardiogram performed later in March 2020 demonstrated significant improvement in his ejection fraction estimated to be 45%. Patient had ECG at last office visit on 10/30/2020 that showed atrial fibrillation. His rate was controlled. He was started on Eliquis therapy. With activity he notes SOB and fatigue. He does not note chest pain. In general he states lightheadedness that resolves with rest. He has been anticoagulated for at least 3 weeks and is here today for a cardioversion. Allergies No Known Allergies Allergy (Verified 11/20/20 14:47) [facility] Medical History (Updated 10/30/20 @ 13:59 by Cali Styles NP, IT CONSULTING MANAGER-C) Acute combined systolic (congestive) and diastolic (congestive) heart failure Bilateral inguinal hernia Chronic combined systolic and diastolic CHF (congestive heart failure) Crohn's disease Elevated LFTs Essential (primary) hypertension History of non-ST elevation myocardial infarction (NSTEMI) (07/30/19) Left ventricular diastolic dysfunction Non-ischemic cardiomyopathy Non-rheumatic tricuspid valve insufficiency Non-sustained ventricular tachycardia Nonrheumatic mitral (valve) insufficiency Obesity Secondary pulmonary arterial hypertension Surgical History History of ankle surgery History of bilateral inguinal hernia repair (03/2019) History of colonoscopy History of colonoscopy with polypectomy (05/2019) History of hand surgery History of left heart catheterization (07/31/19) Family History Mother Colon cancer Breast cancer Cancer BLADDER/LUNG Social History Smoking Status: Never smoker alcohol intake: never substance use type: does not use caffeine: Yes Type: coffee Number of servings: 2 ROS Const Const: Positive for fatigue; Negative for weakness, body ache, fever(s) or chills ENT ENT: Negative for dizziness or Nosebleed/epistaxis Cardio Chest Pain: No Palpitations: No Edema: None Muscle aches with walking: None Resp Respiratory: Positive for SOB with activity; Negative for SOB at rest, SOB orthopnea\SOB lying down, Cough or paroxysmal nocturnal dyspnea GI GI: Negative nausea, vomiting blood/hematemesis, bright, red blood in stools or black,tarry stools : Negative for hematuria or frequent nighttime urination/ nocturia Musc Musc: Negative for muscle aches/ myalgia Skin Skin: Negative non-healing lesions or rash Neuro Neuro: Positive for lightheadedness; Negative for dizziness, near syncope, syncope, orthostatic symptoms or weakness Endo Endo: Positive for fatigue Allergy Allergy/Immunology: Negative for rash Cardiology Exam Const Appearance: cooperative, healthy appearing, comfortable and no acute distress Nutritional Appearance: average body habitus and well nourished Orientation: alert, awake and oriented x3 Head Head: normal to inspection Ears: hearing grossly normal bilaterally Nose: external nose normal Face and Sinus: face symmetric Mouth: oral mucosae normal Eyes General: appearance normal, both eyes and all related structures Eyelids: eyelids normal EOM: EOM intact bilaterally Neck Neck: normal visual inspection and no JVD Carotids: normal carotid upstroke Chest Chest inspection: normal inspection of the chest, symmetric chest movement and normal respiratory effort; Negative cough Auscultation: Bilateral: Clear to Auscultation Cardio Rate: regular rate Rhythm: irregular rhythm Heart sounds: S1 normal and S2 normal; Negative rub, gallop or murmur GI GI: normal to inspection Neuro General: patient alert, patient awake, patient oriented x3 and CN's II-XI intact bilaterally Skin Skin: no rashes or lesions noted Extremities Pulses: Normal: Right Posterior Tibial Pulse, Left Posterior Tibial Pulse, Right Radial Pulse and Left Radial Pulse Lower Extremity Edema: None: Bilateral Psych Psychological: normal affect Assessment & Plan Assessment/Plan (1) Atrial fibrillation: (2) Non-ischemic cardiomyopathy: (3) Chronic combined systolic and diastolic CHF (congestive heart failure): (4) Essential (primary) hypertension: PLAN: Pt will undergo a DCCV today and will follow up in the office as scheduled.
--- NOTE | 2020-12-22 12:08 | PCM.OP.BLANK ---
Problems Associated Problem List Diagnoses (1) Atrial fibrillation: Operative Report Date of Procedure: 12/22/20 DC cardioversion. 60-year-old man with a history of persistent atrial fibrillation on anticoagulation. He also has a history of nonischemic cardiomyopathy with an estimated ejection fraction of 45%. Patient was brought to the noninvasive lab in the postabsorptive nonsedated state. Patient was seen by Dr. Godinez of the critical care division as well as by nm. Informed consent was obtained. Anterior-posterior pads were applied. The patient was administered 6 mg of intravenous etomidate. 200 J of synchronized DC cardioversion energy were applied with prompt reversal to sinus rhythm. Patient tolerated the procedure well. Conclusion: Successful cardioversion from atrial fibrillation to sinus rhythm. Continue current medication. Patient asked to reduce or desist from caffeinated beverages.
--- NOTE | 2020-12-22 13:27 | PCM.OP.PRO ---
Assessment & Plan Assessment/Plan (1) Atrial fibrillation: (2) Non-ischemic cardiomyopathy: (3) Chronic combined systolic and diastolic CHF (congestive heart failure): (4) Secondary pulmonary arterial hypertension: Procedure Report Date of Procedure: 12/22/20 CONSCIOUS SEDATION REPORT BRIEF HISTORY OF PRESENT ILLNESS: The patient is a 60-year-old male who presented to [facility] for an elective outpatient cardioversion due to underlying atrial fibrillation. The patient reports no PO intake since midnight, but is currently therapeutic on anticoagulation. The patient does not have a history of ROCIO. The patient reports no history of smoking and COPD. The patient denies any recent constitutional symptoms such as fevers, chills, nausea or vomiting. The patient denies previous applicable anesthetic complications. Patient's last known ejection fraction was 45%. The patient was anticoagulated with Eliquis. PHYSICAL EXAMINATION: VITAL SIGNS: Reviewed and were acceptable. GENERAL: The patient is a male, in no apparent distress, speaking in full sentences. HEENT: Normocephalic, atraumatic. Mucous membranes are moist and pink. Good mouth opening noted. Trachea is midline. Good neck mobility. MP I CHEST: S1, S2 irregularly irregular. No murmurs, rubs or gallops were noted. LUNGS: Clear to auscultation bilaterally without appreciable wheezes, rales or rhonchi. ABDOMEN: Soft, nontender, nondistended. Positive bowel sounds. EXTREMITIES: There is no clubbing, cyanosis or edema. ASA Class: II DESCRIPTION OF PROCEDURE: After confirmation of informed consent, the patient's anesthesia plan was reviewed in detail. Etomidate was chosen. Risks and benefits were reviewed and the patient agreed to proceed. At 12:02 PM, the patient was given 4 mg of etomidate. The patient required a total of 6 mg of etomidate throughout the procedure to achieve appropriate sedation. The patient achieved an appropriate level of sedation and received 1 attempt synchronized cardioversion, at [address] Ibarra at the bedside. This was successful in achieving normal sinus rhythm. The patient was monitored until 12:13 PM, at which time the patient reached their baseline mental status and function. The patient tolerated the procedure well. COMPLICATIONS: None ESTIMATED BLOOD LOSS: None RECOMMENDATIONS: Okay to recover in usual fashion. Procedures Pulmonary 9xxxx: [id number] Con Sedation
== END 2020-12-22 13:15 | disposition home or self-care (01) ==
LOC: CLSP 10:17
PROVIDERS: Nurse Practitioner Family; PCP Family Medicine; Referring Provider Internal Medicine Cardiovascular Disease; Visit Provider Internal Medicine Cardiovascular Disease
DX: I48.91 Unspecified atrial fibrillation (principal); I42.8 Other cardiomyopathies; I27.21 Secondary pulmonary arterial hypertension; I11.0 Hypertensive heart disease with heart failure; I50.42 Chronic combined systolic (congestive) and diastolic (congestive) heart failure; K50.90 Crohn's disease, unspecified, without complications; I25.2 Old myocardial infarction
CPT/HCPCS: 36415; 80048; 92960; 93005; J7040

== ENCOUNTER 2021-01-13 13:16 | Outpatient (RCR) | payer OTHER, SELFPAY ==
[2021-01-13 13:44] LABS: International Normalized Ratio 2.7; Prothrombin Time (Protime)PT. 28.2 SECONDS (11.7-14.9)
== END 2021-01-25 02:46 | disposition home or self-care (01) ==
LOC: LAB 13:16
PROVIDERS: PCP Family Medicine; Referring Provider Internal Medicine Cardiovascular Disease; Visit Provider Internal Medicine Cardiovascular Disease
DX: I48.91 Unspecified atrial fibrillation (principal); Z79.01 Long term (current) use of anticoagulants
CPT/HCPCS: 36415; 85610

== ENCOUNTER 2021-02-02 08:15 | Emergency (ER) | payer OTHER, SELFPAY ==
[2021-02-02 08:15] VITALS: BP 127/90; PULSE 74; RESP 18; TEMP 36.6; O2SAT 99; BMI 29.6
--- NOTE | 2021-02-02 08:21 | RAD_ITS ---
STUDY: X-RAY CHEST REASON FOR EXAM: Male, 61 years old. Chest pain TECHNIQUE: Single AP portable view of the chest. COMPARISON: Comparison is made with prior study dated 07/30/2019. FINDINGS: The lungs are clear and expanded. There is no demonstrated pleural abnormality. There is moderate cardiac enlargement. Normal mediastinum and loreto. Normal visualized pulmonary arteries. There is atherosclerotic tortuosity of the aortic arch and descending thoracic aorta. Normal visualized thoracic spine. Normal visualized ribs, clavicles, and shoulders. There is no demonstrated abnormality of the visualized soft tissue structures of the upper abdomen. RAD/Chest 1 View (Portable) IMPRESSION: Cardiomegaly. Electronically Signed: Champ Sagastume MD at 8:58 EST , Service support ,
--- NOTE | 2021-02-02 08:21 | EKG12_ITS ---
Test Reason : CP Blood Pressure : / mmHG Vent. Rate : 066 BPM Atrial Rate : 202 BPM P-R Int : 000 ms QRS Dur : 094 ms QT Int : 450 ms P-R-T Axes : 000 -67 054 degrees QTc Int : 471 ms Atrial fibrillation Left anterior fascicular block Poor R wave progression Nonspecific T wave abnormality Abnormal ECG Confirmed by WILLIAM AN, PRABHU ([id number]), editor managing newspaper MARCUS CASTILLO ([id number]) on 02/04/2021 9:11:30 AM Referred By: LUIZA Confirmed By:PRABHU THOMAS MD
--- NOTE | 2021-02-02 08:42 | ED.VIS.CHEST ---
HPI History of Present Illness Chief Complaint: Chest Pain Narrative Narrative: 61-year-old male presenting with chest pain. He describes it as retrosternal. He has been having intermittent pain for the last 3 days. He describes orthopnea and dyspnea on exertion. He states that sometimes he has to stop while walking because of shortness of breath and chest pain. Patient has a history of atrial fibrillation and is anticoagulated on Coumadin. He states he is followed up with Dr. Ibarra in regards to this. He states he has had 1 failed cardioversion previously. He states this initially worked but then later he had another episode of atrial fibrillation and atrial flutter in December. He was started on flecainide at that time. Patient is on Coumadin and Lasix as well. He said no medication changes. He denies lower extremity edema. He is scheduled to have another one with Dr. Ibarra. Patient also states that Dr. 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 Patient does have a history of similar symptoms in the past. He has a history of cardiomyopathy, CHF, pulmonary hypertension, hypertension. He has a history of an EF of 20% which actually improved to 45% in March 2020. 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 Non-ischemic cardiomyopathy Non-rheumatic tricuspid valve insufficiency Non-sustained ventricular tachycardia Nonrheumatic mitral (valve) insufficiency Obesity Secondary pulmonary arterial hypertension Home Medications carvedilol 25 mg tablet 25 mg PO BID #180 tab 10/30/20 [Rx Last Taken 12/22/20] furosemide 40 mg tablet 40 mg PO BID #60 tab 10/30/20 [Rx Last Taken Unknown] flecainide 100 mg tablet 100 mg PO Q12H #60 tab 12/30/20 [Rx Last Taken Unknown] furosemide [Lasix] 60 mg PO BID #30 tab 02/02/21 [Rx Last Taken Unknown] warfarin 5 mg PO DAILY 02/02/21 [History Last Taken Unknown] Allergy/AdvReac Type Severity Reaction Status Date / Time No Known Allergies Allergy Verified 02/02/21 08:17 Family History Mother Colon cancer Breast cancer Cancer BLADDER/LUNG Surgical History History of ankle surgery History of bilateral inguinal hernia repair (03/2019) History of cardioversion (12/22/20) History of colonoscopy History of colonoscopy with polypectomy (05/2019) History of hand surgery History of left heart catheterization (07/31/19) Social History Smoking Status: Never smoker alcohol intake: never substance use type: does not use caffeine: Yes Type: coffee Number of servings: 2 ROS ROS ED Constitutional Constitutional ED: Denies chills or fever(s) Eyes Eyes: Denies blurry vision or change in vision ENT ENT ED: Denies rhinorrhea or sore throat Cardiovascular Cardiovascular: Reports chest pain and palpitations Respiratory/Chest Respiratory/Chest: Reports dyspnea and dyspnea on exertion; Denies cough Gastrointestinal Gastrointestinal: Denies abdominal pain, nausea or vomiting Genitourinary Genitourinary ED: Denies dysuria or hematuria Musculoskeletal Musculoskeletal: Denies arthralgias or myalgias Integumentary Denies Abrasions or rash Neurologic Neurologic: Denies headache(s) or paresthesias Psychiatric Psychiatric: Denies anxiety or depression EXAM Physical Exam Const Vital Signs: 02/02/21 08:15 02/02/21 08:49 02/02/21 10:15 Temperature 98 F 98.0 F Temperature Source Temporal Temporal Pulse Rate 74 67 64 Respiratory Rate 18 15 15 Respiratory Effort Normal Non-Labored Blood Pressure 127/90 H 111/85 H 139/106 H Blood Pressure Mean 102 93 117 Pulse Ox 99 99 Oxygen Delivery Method Room Air Room Air Room Air 02/02/21 13:04 Temperature Temperature Source Pulse Rate 74 Respiratory Rate 16 Respiratory Effort Blood Pressure 135/102 H Blood Pressure Mean 1035/10 Pulse Ox Oxygen Delivery Method Positive well nourished General Appearance ED: NAD; Negative for pallor HEENT Reports moist mucous membranes normocephalic and atraumatic Eyes PERRL and EOMs intact bilaterally Chest Wall inspection of chest normal and palpation of chest normal Resp normal respiratory effort and clear to auscultation bilaterally Effort and Inspection: respiratory distress Cardio regular rate Rhythm: abnormal rhythm irregularly irregular Neuro oriented x3 and CN's II-XII intact bilaterally Sensorium / Orientation: awake and alert Psych mental status grossly normal Skin General Skin Exam: Negative for jaundice or pallor Heart Score History: Slightly/Non-Suspicious ECG: Normal Age: >45 - <65 years Risk Factors: >/= 3 Risk Factors or History of CAD Score: 3 MDM MDM MDM Narrative Medical decision making narrative: Patient presenting with intermittent chest pain and shortness of breath. He is describing orthopnea and dyspnea on exertion. He is on Lasix currently. He is also anticoagulated on Coumadin. His EKG on my interpretation shows atrial fibrillation with a ventricular response of 6 6 bpm without sign of ischemic change. This is consistent with his history. Chest x-ray shows no acute cardiopulmonary process and the radiologist agree. There is cardiomegaly. Patient CBC is within normal limits. INR slightly subtherapeutic at 1.7. I did obtain a D-dimer and this was negative. Patient's renal function is normal. Troponin is 19 initially and his delta troponin is 18. Patient's BNP is 1831. He is describing some orthopnea and dyspnea on exertion which I suspect is due to heart failure. I spoke with Dr. Lay regarding the patient and he recommended giving a dose of Lasix to the IV in the ER as well as changes 40 mg p.o. twice daily to 60 mg p.o. twice daily. He recommended they call Dr. Ibarra tomorrow for a follow-up visit. Patient was amenable to this plan. Patient discharged in stable condition. Impression: 1. CHF exacerbation 2. Chest pain Lab Data Labs: Laboratory Results - last 24 hr 02/02/21 02/02/21 02/02/21 08:47 08:47 08:47 WBC 5.5 RBC 4.74 Hgb 14.7 Hct 45.2 MCV 95.4 H MCH 31.0 MCHC 32.5 RDW Std Deviation 54.3 H RDW Coeff of Kelsi 15.4 H Plt Count 175 MPV 9.8 Immature Gran % (Auto) 0.200 Neut % (Auto) 77.1 H Lymph % (Auto) 12.1 L Crook % (Auto) 7.9 Eos % (Auto) 2.2 Baso % (Auto) 0.5 Absolute Neuts (auto) 4.2 Absolute Lymphs (auto) 0.66 L Nucleated RBC % 0 PT 19.5 H INR 1.7 D-Dimer Quant (PE/DVT) Sodium 139 Potassium 4.6 Chloride 108 H Carbon Dioxide 26.0 Anion Gap 5 BUN 22 H Creatinine 0.98 Estim Creat Clear Calc 76.58 Est GFR (MDRD) Af Amer 100 Est GFR (MDRD) Non-Af 82 BUN/Creatinine Ratio 22.4 H Glucose 88 Calcium 8.6 Troponin I High Sens 19 B-Natriuretic Peptide 02/02/21 02/02/21 02/02/21 08:47 08:47 11:05 WBC RBC Hgb Hct MCV MCH MCHC RDW Std Deviation RDW Coeff of Kelsi Plt Count MPV Immature Gran % (Auto) Neut % (Auto) Lymph % (Auto) Crook % (Auto) Eos % (Auto) Baso % (Auto) Absolute Neuts (auto) Absolute Lymphs (auto) Nucleated RBC % PT INR D-Dimer Quant (PE/DVT) 0.33 Sodium Potassium Chloride Carbon Dioxide Anion Gap BUN Creatinine Estim Creat Clear Calc Est GFR (MDRD) Af Amer Est GFR (MDRD) Non-Af BUN/Creatinine Ratio Glucose Calcium Troponin I High Sens 18 B-Natriuretic Peptide 1853.1 H Radiography Diagnostic Testing: Clinical Impression(s) from Imaging Studies Chest X-Ray 02/02/21 08:21 IMPRESSION: Cardiomegaly. Electronically Signed: Champ Sagastume MD at 8:58 EST , Service support , Discharge Plan Triage Chief Complaint: Chest Pain ED Provider: Dre Burks Dx/Rx/DC Orders Instructions: ED Chest Pain, Noncardiac, ED Heart Failure, Congestive (CHF) Prescriptions: New furosemide [Lasix] 20 mg tablet 60 mg PO BID Qty: 30 RF: 0 No Action carvedilol 25 mg tablet 25 mg PO BID Qty: 180 RF: 3 furosemide [Lasix] 40 mg tablet 40 mg PO BID Qty: 60 RF: 12 flecainide 100 mg tablet 100 mg PO Q12H Qty: 60 RF: 11 warfarin 5 mg tablet 5 mg PO DAILY RF: 0 Primary Care Provider: Jonnie Machado Referrals: Jonnie Machado MD [Primary Care Provider] - Disposition Disposition: Home, Self Care Discharge Date/Time: 02/02/21 13:10
[2021-02-02 08:49] VITALS: BP 111/85; PULSE 67; RESP 15; TEMP 36.7; O2SAT 99
[2021-02-02 09:02] LABS: Absolute Lymphocyte Count 0.66 X10^3/uL (0.83-4.51); Absolute Neutrophil Count 4.2 X10^3/uL (2.0-7.7); Basophil# 0.03 X10^3/uL; Basophil% 0.5 % (0-1); Eosinophil# 0.12 X10^3/uL; Eosinophils% 2.2 % (0-5); Hematocrit 45.2 % (40-54); Hemoglobin 14.7 g/dL (13.0-16.5); Lymphocyte # 0.66 X10^3/ul (0.83-4.51); Lymphocyte % 12.1 % (19-41); Mean Corp Hgb Conc 32.5 g/dL (32-36); Mean Corpuscular Volume 95.4 fL (80-94); Mean Platelet Vol. 9.8 fl (6.2-12.0); Monocyte# 0.43 X10^3/uL; Monocyte% 7.9 % (0-10); NRBC Flagged by Analyzer 0 % (0-5); Neutrophil # 4.21 X10^3/uL (2.7-7.7); Neutrophil % 77.1 % (47-70); Platelet Count 175 K/mm3 (150-450); RBC Distribution Width CV 15.4 % (11.6-14.6); RBC Distribution Width SD 54.3 fl (35.1-43.9); Red Blood Count 4.74 M/mm3 (4.6-6.2); White Blood Count 5.5 K/mm3 (4.4-11.0)
[2021-02-02 09:21] LABS: International Normalized Ratio 1.7; Prothrombin Time (Protime)PT. 19.5 SECONDS (11.7-14.9)
[2021-02-02 09:28] LABS: Anion Gap 5 (5-15); BNP,B-Type NATRIURETIC PEPTIDE 1853.1 pg/mL (0-100); BUN 22 mg/dL (7-18); BUN/Creat Ratio 22.4 RATIO (10-20); Calcium,Total 8.6 mg/dL (8.5-10.1); Chloride 108 mmol/L (98-107); Creatinine, Serum 0.98 mg/dL (0.70-1.30); EST Glomerular Filtration Rate 82 mL/min (>60); Est Glom Filt Rate - Afr Amer 100 mL/min (>60); Estimated Creatinine Clearance 76.58 ml/min; Glucose 88 mg/dL (74-106); Potassium 4.6 mmol/L (3.5-5.1); Sodium Level 139 mmol/L (136-145); Troponin-I HS 19 pg/mL (3.0-78.0)
[2021-02-02 09:59] LABS: D-Dimer Quantitative (DVT/PE) 0.33 FEU/ug/m (0.27-0.49)
[2021-02-02 10:15] VITALS: BP 139/106; PULSE 64; RESP 15
[2021-02-02 11:29] LABS: Troponin-I HS 18 pg/mL (3.0-78.0)
[2021-02-02] MEDS: Furosemide 40 MG/4 ML Vial IV (13:03)
[2021-02-02 13:04] VITALS: BP 135/102; PULSE 74; RESP 16
== END 2021-02-02 13:10 | disposition home or self-care (01) ==
PROVIDERS: Emergency Provider Student in an Organized Health Care Education/Training Program; PCP Family Medicine
DX: I11.0 Hypertensive heart disease with heart failure (principal); I50.42 Chronic combined systolic (congestive) and diastolic (congestive) heart failure; R07.9 Chest pain, unspecified; I48.91 Unspecified atrial fibrillation; R06.00 Dyspnea, unspecified; E66.9 Obesity, unspecified; I25.10 Atherosclerotic heart disease of native coronary artery without angina pectoris; I27.21 Secondary pulmonary arterial hypertension; I42.9 Cardiomyopathy, unspecified; I25.2 Old myocardial infarction; I48.92 Unspecified atrial flutter; K50.90 Crohn's disease, unspecified, without complications; Z79.01 Long term (current) use of anticoagulants
CPT/HCPCS: 71045; 80048; 83880; 84484; 85025; 85379; 85610; 93005; 96374; 99284; A4216; J1940

== ENCOUNTER → 2021-02-10 15:29 | Outpatient (CLI) | payer OTHER, SELFPAY ==
[2021-02-10 17:16] LABS: Anion Gap 4 (5-15); BUN 15 mg/dL (7-18); BUN/Creat Ratio 13.2 RATIO (10-20); Calcium,Total 8.4 mg/dL (8.5-10.1); Chloride 106 mmol/L (98-107); Creatinine, Serum 1.14 mg/dL (0.70-1.30); EST Glomerular Filtration Rate 69 mL/min (>60); Est Glom Filt Rate - Afr Amer 84 mL/min (>60); Glucose 101 mg/dL (74-106); Potassium 3.3 mmol/L (3.5-5.1); Sodium Level 140 mmol/L (136-145)
== END ==
PROVIDERS: Nurse Practitioner Family; PCP Family Medicine; Visit Provider Internal Medicine Cardiovascular Disease
DX: I48.19 Other persistent atrial fibrillation (principal)
CPT/HCPCS: 36415; 80048

== ENCOUNTER 2021-02-24 16:19 | Outpatient (RCR) | payer OTHER, SELFPAY ==
[2021-01-26 17:32] LABS: International Normalized Ratio 1.2; Prothrombin Time (Protime)PT. 14.5 SECONDS (11.7-14.9)
[2021-02-24 17:14] LABS: Prothrombin Time (Protime)PT. 38.3 SECONDS (11.7-14.9)
== END 2021-02-24 18:00 | disposition home or self-care (01) ==
LOC: LAB 16:19
PROVIDERS: PCP Family Medicine; Referring Provider Internal Medicine Cardiovascular Disease; Visit Provider Internal Medicine Cardiovascular Disease
DX: I48.91 Unspecified atrial fibrillation (principal); Z79.01 Long term (current) use of anticoagulants
CPT/HCPCS: 36415; 85610

== ENCOUNTER 2021-03-31 13:50 | Outpatient (CLI) | payer OTHER, SELFPAY | END 2021-03-31 23:59 | disposition short-term general hospital (02) | LOC: LAB 13:53 | PROVIDERS: PCP Family Medicine; Referring Provider Internal Medicine Cardiovascular Disease; Visit Provider Internal Medicine Cardiovascular Disease | DX: I48.91 Unspecified atrial fibrillation (principal); Z79.01 Long term (current) use of anticoagulants ==

== ENCOUNTER 2021-04-27 13:50 | Outpatient (RCR) | payer OTHER, SELFPAY ==
[2021-04-01 14:05] LABS: International Normalized Ratio 1.7; Prothrombin Time (Protime)PT. 19.5 SECONDS (11.7-14.9)
[2021-04-27 14:23] LABS: International Normalized Ratio 1.9; Prothrombin Time (Protime)PT. 21.1 SECONDS (11.7-14.9)
[2021-04-27 14:29] LABS: Anion Gap 3 (5-15); BUN 22 mg/dL (7-18); Calcium,Total 8.4 mg/dL (8.5-10.1); Chloride 113 mmol/L (98-107); EST Glomerular Filtration Rate 72 mL/min (>60); Est Glom Filt Rate - Afr Amer 87 mL/min (>60); Glucose 105 mg/dL (74-106); Sodium Level 141 mmol/L (136-145)
== END 2021-04-27 18:00 | disposition home or self-care (01) ==
LOC: LAB 13:50
PROVIDERS: Nurse Practitioner Gerontology; PCP Family Medicine; Referring Provider Internal Medicine Cardiovascular Disease; Visit Provider Internal Medicine Cardiovascular Disease
DX: I48.91 Unspecified atrial fibrillation (principal); Z79.01 Long term (current) use of anticoagulants
CPT/HCPCS: 36415; 80048; 85610

== ENCOUNTER → 2021-05-04 09:45 | Day surgery (SDC) | payer OTHER, SELFPAY ==
[2021-05-01 09:02] VITALS: BMI 27.3
--- NOTE | 2021-05-04 12:17 | PRO.PCM_ITS ---
Procedure Report Date of Procedure: 05/04/21 CONSCIOUS SEDATION REPORT DATE OF SERVICE: May 04, 2021 BRIEF HISTORY OF PRESENT ILLNESS: The patient is a 61-year-old male who presented to [facility] for an elective outpatient cardioversion due to underlying atrial fibrillation. The patient underwent a prior cardioversion in November 2020, during which time, he required 6 mg of etomidate. The patient is systemically anticoagulated on Xarelto. His last surface echocardiogram demonstrated an ejection fraction o f approximately 45%. PHYSICAL EXAMINATION: VITAL SIGNS: Reviewed and were acceptable. GENERAL: The patient is a male, in no apparent distress, speaking in full sentences. HEENT: Normocephalic, atraumatic. Mucous membranes are moist and pink. Good mouth opening noted. Trachea is midline. Good neck mobility. CHEST: S1, S2 irregularly irregular. No murmurs, rubs or gallops were noted. LUNGS: Clear to auscultation bilaterally without appreciable wheezes, rales or rhonchi. ABDOMEN: Soft, nontender, nondistended. Positive bowel sounds. EXTREMITIES: There is no clubbing, cyanosis or edema. ASA Class: II DESCRIPTION OF PROCEDURE: After confirmation of informed consent, the patient's anesthesia plan was reviewed in detail. Etomidate was chosen. Risks and benefits were reviewed and the patient agreed to proceed. At 1200, the patient was given 6 mg of etomidate. The patient achieved an appropriate level of sedation and was given a 200 joule synchronized cardioversion by Dr. Ibarra at the bedside. This was successful in achieving normal sinus rhythm. The patient was monitored until 1211, at which time he reached his baseline mental status and function. The patient tolerated the procedure well. COMPLICATIONS: None ESTIMATED BLOOD LOSS: None RECOMMENDATIONS: Okay to recover in usual fashion. Procedures Pulmonary 9xxxx: [id number] Con Sedation
--- NOTE | 2021-05-04 14:00 | PCM.OP.BLANK ---
Problems Associated Problem List Diagnoses (1) Persistent atrial fibrillation: Operative Report Date of Procedure: 05/04/21 DC cardioversion. 61-year-old man with a history of symptomatic persistent atrial fibrillation. The patient has been on appropriate anticoagulation for the appropriate duration. The patient was seen by Dr. Kemp of the critical care division. Informed consent was obtained. Anterior-posterior pads were applied. The patient was then administered 6 mg of intravenous etomidate and 200 J of synchronized DC cardioversion energy were applied with prompt reversal to sinus rhythm. EKG confirmed normal sinus mechanism. Patient tolerated the procedure well. Conclusion: Successful DC cardioversion from atrial fibrillation. Follow-up as per patient office protocol
== END ==
PROVIDERS: PCP Family Medicine; Referring Provider Internal Medicine Cardiovascular Disease; Visit Provider Internal Medicine Cardiovascular Disease
DX: I48.19 Other persistent atrial fibrillation (principal); I42.8 Other cardiomyopathies; I11.0 Hypertensive heart disease with heart failure; I50.42 Chronic combined systolic (congestive) and diastolic (congestive) heart failure; I25.2 Old myocardial infarction; I34.0 Nonrheumatic mitral (valve) insufficiency; I36.1 Nonrheumatic tricuspid (valve) insufficiency
CPT/HCPCS: 92960; 93005; J7040

== ENCOUNTER 2021-11-02 14:43 | Emergency (ER) | payer OTHER, SELFPAY ==
[2021-11-02 14:43] VITALS: BP 123/95; PULSE 84; RESP 16; TEMP 36.6; O2SAT 95; BMI 25.5
--- NOTE | 2021-11-02 14:45 | EKG12_ITS ---
Test Reason : CP Blood Pressure : / mmHG Vent. Rate : 080 BPM Atrial Rate : 080 BPM P-R Int : 194 ms QRS Dur : 092 ms QT Int : 414 ms P-R-T Axes : 050 -63 033 degrees QTc Int : 477 ms Normal sinus rhythm with sinus arrhythmia Left anterior fascicular block Confirmed by VICTORIA AN, LYDIA ([id number]), fan mail editor JUNO ALCAZAR ([id number]) on 11/03/2021 9:29:23 AM Referred By: PL Confirmed By:LYDIA KESSLER MD
[2021-11-02 15:02] LABS: Absolute Lymphocyte Count 0.37 X10^3/uL (0.83-4.51); Absolute Neutrophil Count 3.4 X10^3/uL (2.0-7.7); Basophil# 0.02 X10^3/uL; Basophil% 0.4 % (0-1); Eosinophil# 0.04 X10^3/uL; Eosinophils% 0.9 % (0-5); Hematocrit 45.4 % (40-54); Hemoglobin 15.2 g/dL (13.0-16.5); Lymphocyte # 0.37 X10^3/ul (0.83-4.51); Lymphocyte % 8.3 % (19-41); Mean Corp Hgb Conc 33.5 g/dL (32-36); Mean Corpuscular Hgb 30.8 pg (27.0-32.0); Mean Corpuscular Volume 92.1 fL (80-94); Mean Platelet Vol. 9.3 fl (6.2-12.0); Monocyte# 0.65 X10^3/uL; Monocyte% 14.5 % (0-10); NRBC Flagged by Analyzer 0 % (0-5); Neutrophil # 3.38 X10^3/uL (2.7-7.7); Neutrophil % 75.7 % (47-70); POSITIVE DIFFERENTIAL YES; Platelet Count 165 K/mm3 (150-450); RBC Distribution Width SD 47.4 fl (35.1-43.9); Red Blood Count 4.93 M/mm3 (4.6-6.2); White Blood Count 4.5 K/mm3 (4.4-11.0)
[2021-11-02 15:05] LABS: Differential Indicated SCAN CRITERIA MET
[2021-11-02 15:14] LABS: International Normalized Ratio 2.6; Prothrombin Time (Protime)PT. 27.5 SECONDS (11.7-14.9)
[2021-11-02 15:18] VITALS: BP 120/90; PULSE 85; RESP 20; O2SAT 93
[2021-11-02 15:20] LABS: Anion Gap 5 (5-15); BUN 21 mg/dL (7-18); BUN/Creat Ratio 19.8 RATIO (10-20); Calcium,Total 9.3 mg/dL (8.5-10.1); Chloride 104 mmol/L (98-107); Creatinine, Serum 1.06 mg/dL (0.70-1.30); EST Glomerular Filtration Rate 75 mL/min (>60); Est Glom Filt Rate - Afr Amer 91 mL/min (>60); Glucose 102 mg/dL (74-106); Potassium 4.1 mmol/L (3.5-5.1); Sodium Level 136 mmol/L (136-145); Troponin-I HS 22 pg/mL (3.0-78.0)
[2021-11-02 15:22] LABS: Platelet Estimate ADEQUATE (ADEQ); Red Cell Morphology NORM C+C NORMAL (NORM C&C)
--- NOTE | 2021-11-02 15:25 | RAD_ITS ---
STUDY: X-RAY CHEST REASON FOR EXAM: Male, 61 years old. Chest pain TECHNIQUE: Single AP portable view of the chest. COMPARISON: Comparison is made with prior examination of 02/02/2021. FINDINGS: EKG electrodes are seen. The lungs are clear and expanded. There is no demonstrated pleural abnormality. There is borderline cardiomegaly. Normal mediastinum and loreto. Normal visualized pulmonary arteries. There is atherosclerotic tortuosity of the aortic arch and descending thoracic aorta. There are degenerative changes of the visualized thoracic spine. Normal visualized ribs, clavicles, and shoulders. There is no demonstrated abnormality of the visualized soft tissue structures of the upper abdomen. RAD/Chest 1 View (Portable) IMPRESSION: Borderline cardiomegaly. The lungs are clear. Electronically Signed: Champ Sagastume MD at 15:39 EDT ,
--- NOTE | 2021-11-02 16:24 | EDS_ITS ---
HPI History of Present Illness Chief Complaint: Chest Pain Informant: patient Onset/Context/Timing Onset: Weeks (2) Activity at onset: gradual Timing: Continuous Quality: Positive for Pressure Location: Substernal, Left Parasternal and Left Chest Worsened By: - (Humidity) Relieved By: Nothing Associated Symptoms: Positive for Diaphoresis, Dyspnea, Lightheadedness and Palpitations; Negative for Nausea, Vomiting, Cough, Fever or Acid Reflux Narrative Narrative: Patient presents with chest pain that began 2 weeks ago. Patient states it was intermittent but has been constant for the past week. Patient describes the pain as a pressure. Patient states the pain is over the substernal and left chest area. Patient states it is worse whenever he he is out in the humidity. Patient states nothing makes it better. Patient admits to some diaphoresis and shortness of breath. Patient also admits to some lightheadedness and palpitations. Patient states he has a history of atrial fibrillation and thinks he may be in atrial fibrillation again. Patient also has a history of congestive heart failure. CVD Risk Factors: Positive for Hypertension; Negative for Diabetes, Hypercholesterolemia, Family History 1' </=55 or Smoking PE Risk Factors: Negative for Recent Travel/Surgery, Recent Immobilization, Prior DVT or PE or Cancer [facility] Medical History Acute combined systolic (congestive) and diastolic (congestive) heart failure Bilateral inguinal hernia Chronic combined systolic and diastolic CHF (congestive heart failure) Crohn's disease Elevated LFTs Essential (primary) hypertension History of non-ST elevation myocardial infarction (NSTEMI) (07/30/19) Left ventricular diastolic dysfunction 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 Non-ischemic cardiomyopathy Non-rheumatic tricuspid valve insufficiency Non-sustained ventricular tachycardia Nonrheumatic mitral (valve) insufficiency Obesity Persistent atrial fibrillation Secondary pulmonary arterial hypertension Home Medications rivaroxaban 20 mg tablet (Xarelto) 20 mg PO DAILY #90 tabs 02/06/21 [Rx Last Taken 11/02/21] furosemide 40 mg tablet 80 mg PO BID 30 days #120 tabs 02/23/21 [Rx Last Taken 11/02/21] carvedilol 25 mg tablet 25 mg PO BID #180 tabs 10/05/21 [Rx Last Taken 11/02/21] Allergy/AdvReac Type Severity Reaction Status Date / Time No Known Allergies Allergy Verified 11/02/21 14:45 Family History Mother Colon cancer Breast cancer Cancer BLADDER/LUNG Surgical History History of ankle surgery History of bilateral inguinal hernia repair (03/2019) History of cardioversion (12/22/20) History of colonoscopy History of colonoscopy with polypectomy (05/2019) History of hand surgery History of left heart catheterization (07/31/19) History of radiofrequency ablation procedure for cardiac arrhythmia (06/18/21) Social History Smoking Status: Never smoker alcohol intake: never substance use type: does not use caffeine: Yes Type: coffee Number of servings: 2 ROS ROS ED Constitutional Constitutional ED: Denies chills or fever(s) Eyes Eyes: Denies blurry vision or change in vision ENT ENT ED: Denies rhinorrhea or sore throat Cardiovascular Cardiovascular: Reports chest pain and palpitations Respiratory/Chest Respiratory/Chest: Reports dyspnea; Denies cough Gastrointestinal Gastrointestinal: Denies abdominal pain, nausea or vomiting Genitourinary Genitourinary ED: Denies dysuria or hematuria Musculoskeletal Musculoskeletal: Denies back pain or neck pain Integumentary Denies abscess or rash Neurologic Neurologic: Denies headache(s) or weakness Allergic/Immunologic Allergic/Immunologic ED: Denies mouth swelling or urticaria EXAM Physical Exam Const Vital Signs: 11/02/21 14:43 11/02/21 15:18 11/02/21 15:18 Temperature 98 F Temperature Source Oral Pulse Rate 84 85 Respiratory Rate 16 20 H Respiratory Effort Respiratory Pattern Blood Pressure 123/95 H 120/90 H Blood Pressure Mean 104 100 Pulse Ox 95 93 93 Oxygen Delivery Method Room Air Room Air Room Air 11/02/21 15:18 Temperature Temperature Source Pulse Rate Respiratory Rate Respiratory Effort Normal Non-Labored Respiratory Pattern Normal Blood Pressure Blood Pressure Mean Pulse Ox Oxygen Delivery Method Positive well nourished and well developed General Appearance ED: well developed and NAD HEENT normocephalic and atraumatic Eyes PERRL and EOMs intact bilaterally Neck supple and no JVD Chest Wall palpation of chest normal Resp normal respiratory effort and clear to auscultation bilaterally Effort and Inspection: Negative for respiratory distress Cardio regular rate, regular rhythm and no murmurs GI normal to inspection, nondistended, normoactive bowel sounds, soft to palpation, non-tender and non-distended Extremity normal to inspection General Extremety ED: Negative for edema or tenderness General Extremity: Negative for edema Neuro oriented x3, CN's II-XII intact bilaterally and no sensory deficits noted Sensorium / Orientation: awake and alert Motor Exam: strength 5/5 throughout Psych mental status grossly normal Heart Score History: Slightly/Non-Suspicious ECG: Nonspecific Repolarization Age: >45 - <65 years Risk Factors: 1 or 2 Risk Factors Troponin: </= Normal Limit Score: 3 MDM MDM MDM Narrative Medical decision making narrative: EKG was obtained. On my interpretation, it showed a normal sinus rhythm with a rate of 80. MN interval, QRS interval, and QTc intervals were all normal. There is left axis deviation at -63. There is left anterior fascicular block. There are nonspecific ST-T wave changes. Portable 1 view chest x-ray was obtained. On my interpretation, lung hahn are clear. There is borderline cardiomegaly. Bony thorax is normal. There is no acute process noted. Radiologist also interpreted the x-ray and agrees. CBC was within normal limits. PT with INR was therapeutic at 2.6. Basic metabolic profile was within normal limits. High-sensitivity troponin was normal. Patient was advised of his findings. Patient has a HEART score of 3. Patient was advised that this is low risk for acute cardiac event. Patient was instructed to follow-up with his primary care physician in 5 to 7 days. Patient was instructed to return if worse in any way. Patient understood and was agreeable with the plan. All questions were answered. Lab Data Attestation: I reviewed the patient's lab results. Labs: Laboratory Results - last 24 hr 11/02/21 11/02/21 11/02/21 14:53 14:53 14:53 WBC 4.5 RBC 4.93 Hgb 15.2 Hct 45.4 MCV 92.1 MCH 30.8 MCHC 33.5 RDW Std Deviation 47.4 H RDW Coeff of Kelsi 14.0 Plt Count 165 MPV 9.3 Immature Gran % (Auto) 0.200 Neut % (Auto) 75.7 H Lymph % (Auto) 8.3 L Dickenson % (Auto) 14.5 H Eos % (Auto) 0.9 Baso % (Auto) 0.4 Absolute Neuts (auto) 3.4 Absolute Lymphs (auto) 0.37 L Nucleated RBC % 0 Platelet Estimate ADEQUATE RBC Morphology NORM C+C PT 27.5 H INR 2.6 Sodium 136 Potassium 4.1 Chloride 104 Carbon Dioxide 27.0 Anion Gap 5 BUN 21 H Creatinine 1.06 Estim Creat Clear Calc 70.80 Est GFR (MDRD) Af Amer 91 Est GFR (MDRD) Non-Af 75 BUN/Creatinine Ratio 19.8 Glucose 102 Calcium 9.3 Troponin I High Sens 22 Radiography Chest X-Ray - ED: 1 View, Read by ED Physician, Read by Radiologist, No Acute Disease and Cardiomegaly (Borderline) Diagnostic Testing: Clinical Impression(s) from Imaging Studies Chest X-Ray 11/02/21 15:25 IMPRESSION: Borderline cardiomegaly. The lungs are clear. Electronically Signed: Champ Sagastume MD at 15:39 EDT , EKG Initial EKG: Attestation: I personally reviewed and interpreted this EKG as follows: Interpretation: Sinus Rhythm (80), LAFB and Non-Specific ST Changes Prior EKG tracings: available for review Prior: Unchanged (06/19/2021) Discharge Plan Triage Chief Complaint: Chest Pain ED Provider: Tato Gonzalez Dx/Rx/DC Orders Clinical Impression: Chest pain of uncertain etiology Instructions: ED Chest Pain, Uncertain Cause Prescriptions: No Action Xarelto 20 mg tablet 20 mg PO DAILY Qty: 90 3RF Hold Instructions: Needs PA first, cannot afford: Rx Instructions: must administer with evening meal furosemide 40 mg tablet 80 mg PO BID 30 Days Qty: 120 11RF carvedilol 25 mg tablet 25 mg PO BID Qty: 180 3RF Primary Care Provider: Jonnie Machado Referrals: Jonnie Machado MD [Primary Care Provider] - 5-7 Days Disposition Disposition: Home, Self Care
[2021-11-02 16:48] VITALS: PULSE 84; RESP 15; O2SAT 99
== END 2021-11-02 16:48 | disposition home or self-care (01) ==
PROVIDERS: Emergency Provider Emergency Medicine; PCP Family Medicine; Visit Provider Emergency Medicine
DX: R07.9 Chest pain, unspecified (principal); I11.0 Hypertensive heart disease with heart failure; I50.42 Chronic combined systolic (congestive) and diastolic (congestive) heart failure; I48.19 Other persistent atrial fibrillation; I44.4 Left anterior fascicular block; I25.2 Old myocardial infarction
CPT/HCPCS: 71045; 80048; 84484; 85025; 85610; 93005; 99284

== ENCOUNTER → 2021-12-30 | Outpatient (CLI) | payer OTHER, SELFPAY ==
[2021-12-30 16:20] LABS: Absolute Lymphocyte Count 1.11 X10^3/uL (0.83-4.51); Absolute Neutrophil Count 5.5 X10^3/uL (2.0-7.7); Basophil# 0.03 X10^3/uL; Basophil% 0.4 % (0-1); Eosinophil# 0.21 X10^3/uL; Eosinophils% 2.8 % (0-5); Hemoglobin 12.3 g/dL (13.0-16.5); Lymphocyte # 1.11 X10^3/ul (0.83-4.51); Lymphocyte % 14.8 % (19-41); Mean Corp Hgb Conc 31.5 g/dL (32-36); Mean Corpuscular Hgb 30.5 pg (27.0-32.0); Mean Corpuscular Volume 96.8 fL (80-94); Mean Platelet Vol. 9.1 fl (6.2-12.0); Monocyte# 0.61 X10^3/uL; Monocyte% 8.1 % (0-10); NRBC Flagged by Analyzer 0 % (0-5); Neutrophil # 5.51 X10^3/uL (2.7-7.7); Neutrophil % 73.6 % (47-70); Platelet Count 229 K/mm3 (150-450); RBC Distribution Width CV 14.6 % (11.6-14.6); RBC Distribution Width SD 52.3 fl (35.1-43.9); Red Blood Count 4.03 M/mm3 (4.6-6.2); White Blood Count 7.5 K/mm3 (4.4-11.0)
[2021-12-30 16:47] LABS: BNP,B-Type NATRIURETIC PEPTIDE 2381.2 pg/mL (0-100)
[2021-12-30 16:58] LABS: Anion Gap 6 (5-15); BUN 21 mg/dL (7-18); BUN/Creat Ratio 19.1 RATIO (10-20); Calcium,Total 8.5 mg/dL (8.5-10.1); Chloride 109 mmol/L (98-107); EST Glomerular Filtration Rate 72 mL/min (>60); Est Glom Filt Rate - Afr Amer 87 mL/min (>60); Glucose 91 mg/dL (74-106); Magnesium 1.8 mg/dL (1.6-2.6); Sodium Level 141 mmol/L (136-145); Thyroid Stim Hormone (TSH) 1.58 uIU/mL (0.358-3.74)
== END | disposition home or self-care (01) ==
PROVIDERS: PCP Family Medicine; Referring Provider Nurse Practitioner Family; Visit Provider Nurse Practitioner Family
DX: R06.09 Other forms of dyspnea (principal); I42.8 Other cardiomyopathies; R53.83 Other fatigue
CPT/HCPCS: 36415; 80048; 83735; 83880; 84443; 85025

== ENCOUNTER 2022-12-22 13:04 | Outpatient (RCR) | payer SELFPAY ==
[2022-12-22 13:32] LABS: International Normalized Ratio 1.3; Prothrombin Time (Protime)PT. 16.5 SECONDS (11.7-14.9)
[2022-12-22 13:54] LABS: Anion Gap 5 (5-15); BUN 90 mg/dL (7-18); Calcium,Total 8.9 mg/dL (8.5-10.1); Chloride 101 mmol/L (98-107); EST Glomerular Filtration Rate 18 mL/min (>60); Est Glom Filt Rate - Afr Amer 22 mL/min (>60); Glucose 112 mg/dL (74-106); Potassium 5.6 mmol/L (3.5-5.1); Sodium Level 132 mmol/L (136-145)
== END 2022-12-22 18:00 | disposition home or self-care (01) ==
LOC: LAB 13:04
PROVIDERS: PCP Family Medicine; Referring Provider Nurse Practitioner Family; Visit Provider Nurse Practitioner Family
DX: I48.19 Other persistent atrial fibrillation (principal); Z79.01 Long term (current) use of anticoagulants
CPT/HCPCS: 36415; 80048; 85610

== ENCOUNTER 2023-01-04 15:39 | Outpatient (RCR) | payer SELFPAY ==
[2023-01-04 16:24] LABS: Anion Gap 8 (5-15); BUN 54 mg/dL (7-18); BUN/Creat Ratio 21.3 RATIO (10-20); Calcium,Total 8.6 mg/dL (8.5-10.1); Chloride 104 mmol/L (98-107); Creatinine, Serum 2.53 mg/dL (0.70-1.30); EST Glomerular Filtration Rate 28 mL/min (>60); Est Glom Filt Rate - Afr Amer 33 mL/min (>60); Glucose 101 mg/dL (74-106); Potassium 4.5 mmol/L (3.5-5.1); Sodium Level 137 mmol/L (136-145)
== END 2023-01-04 18:00 | disposition home or self-care (01) ==
LOC: LAB 15:39
PROVIDERS: PCP Family Medicine; Referring Provider Nurse Practitioner Family; Visit Provider Nurse Practitioner Family
DX: I48.19 Other persistent atrial fibrillation (principal); Z79.01 Long term (current) use of anticoagulants
CPT/HCPCS: 36415; 80048

== ENCOUNTER → 2023-01-07 | Outpatient (CLI) | payer SELFPAY ==
--- NOTE | 2023-01-07 13:30 | ECHOCS_ITS ---
Version 2 Reason For Study: CHF Procedure This was a 2D Doppler, Color Flow transthoracic echocardiogram. Myocardial strain analysis was performed in this exam to aid in the assessment of cardiac function. Contrast injection was performed. Exam performed in department. Left Ventricle Mildly dilated left ventricle. The estimated ejection fraction is 20 %. There is severe global hypokinesis of the left ventricle. Right Ventricle Normal RV size. Normal systolic function. Atria Normal left atrium. Normal right atrium. Patent foramen ovale. Mitral Valve Normal mitral valve. Tricuspid Valve Normal tricuspid valve. Mild to moderate (1-2+) tricuspid valve insufficiency. Pulmonary artery systolic pressure is 35 mmHg. Aortic Valve Trisinus/trileaflet aortic valve. Pulmonic Valve Normal pulmonic valve. Great Vessels Normal aortic root. The pulmonary artery is normal size. Normal inferior vena cava. Pericardium/Pleural No pericardial effusion. Medication Diluted definity 3.5ml given slow IV push to enhance endocardial definition. MMode/2D Measurements & Calculations LVIDd: 5.7 cm IVSd: 0.97 cm Ao root diam: 3.0 cm LVIDs: 5.2 cm LVPWd: 0.78 cm RVDd: 4.6 cm FS: 9.3 % LAV(MOD-bp): 77.9 ml LVAd ap4: 39.6 cm2 LVAd ap2: 41.6 cm2 LAV(MOD-bp) Indexed: 42.5 ml/m2 LVLd ap4: 8.5 cm LVLd ap2: 7.7 cm LAV(MOD-sp2): 82.9 ml EDV(MOD-sp4): 151.3 ml EDV(MOD-sp2): 182.8 ml LAV(MOD-sp4): 68.5 ml EDV(sp4-el): 157.8 ml EDV(sp2-el): 192.3 ml LVAs ap4: 34.8 cm2 LVAs ap2: 36.0 cm2 LVLs ap4: 8.0 cm LVLs ap2: 7.2 cm ESV(MOD-sp4): 126.4 ml ESV(MOD-sp2): 146.8 ml ESV(sp4-el): 127.5 ml ESV(sp2-el): 152.4 ml EF(MOD-sp4): 16.4 % EF(MOD-sp2): 19.7 % EF(sp4-el): 19.2 % SV(MOD-sp4): 24.9 ml SV(MOD-sp2): 35.9 ml SV(sp4-el): 30.3 ml LA A4 area: 22.1 cm2 LA dimension(2D): 4.6 cm RA A4 area: 19.2 cm2 Time Measurements MV dec time: 0.24 sec Doppler Measurements & Calculations MV E max cirilo: 54.5 cm/sec Lat Peak E' Cirilo: 5.1 cm/sec Med Peak E' Cirilo: 5.5 cm/sec MV A max cirilo: 45.6 cm/sec E/E' lat: 10.7 E/E' med: 10.0 MV E/A: 1.2 Ao V2 max: 98.7 cm/sec LV V1 max: 78.1 cm/sec MV dec slope: 224.4 cm/sec2 Ao max P.9 mmHg LV V1 max P.4 mmHg Ao V2 mean: 74.6 cm/sec Ao mean P.4 mmHg Ao V2 VTI: 18.4 cm PA V2 max: 80.1 cm/sec TR max cirilo: 278.0 cm/sec TR max P.9 mmHg ECHO/Echo Complete W/ Contrast Interpretation Summary Mildly dilated left ventricle. The estimated ejection fraction is 20 %. There is severe global hypokinesis of the left ventricle. Mild to moderate (1-2+) tricuspid valve insufficiency. Pulmonary artery systolic pressure is 35 mmHg. Patent foramen ovale. The global longitudinal strain is severely abnormal. The global longitudinal st rain = -9% (abnormal). Ordering Physician: Cali Styles Referring Physician: Jolanta Machado Performed By: Jenny Styles, SAMIA, RVT
== END | disposition home or self-care (01) ==
LOC: CVS 13:29
PROVIDERS: PCP Family Medicine; Referring Provider Nurse Practitioner Family; Visit Provider Nurse Practitioner Family
DX: I48.91 Unspecified atrial fibrillation (principal); I42.8 Other cardiomyopathies; I10 Essential (primary) hypertension
CPT/HCPCS: 93306; Q9957; A4216; C8929